=== PATIENT | male | born 1960 | race African-American/Black ===

== ENCOUNTER 2020-01-08 23:44 | Inpatient (IN) | payer OTHER ==
[~2020-01-08] VITALS: Ht 185.4 cm; Wt 96.6 kg
[2020-01-09 00:15] LABS: BASO # 0.1 x10^3/uL (0.0-0.2); BASO % 1 % (0-3); EOS # 0.1 x10^3/uL (0.0-0.7); EOS % 1 % (0-3); HEMATOCRIT 44.9 % (39.0-53.0); HEMOGLOBIN 15.1 g/dL (13.0-17.5); LYMPH # 2.8 x10^3/uL (1.0-4.8); LYMPH % 26 % (24-48); MEAN CORPUSCULAR HEMOGLOBIN 28 pg (25-35); MEAN CORPUSCULAR HGB CONC 34 g/dL (31-37); MEAN CORPUSCULAR VOLUME 82 fL (79-100); MONO % 9 % (0-9); NEUT # 6.9 x10^3/uL (1.8-7.7); NEUT % 64 % (31-73); PLATELET COUNT 269 x10^3/uL (140-400); RED BLOOD COUNT 5.45 x10^6/uL (4.30-5.70); RED CELL DISTRIBUTION WIDTH 13.6 % (11.5-14.5); WHITE BLOOD COUNT 10.8 x10^3/uL (4.0-11.0)
--- NOTE | 2020-01-09 00:43 | RAD ---
AP chest. HISTORY: Pain AP view was taken of the chest. Patient's taken a poor inspiration. Lungs are clear. Heart is normal in size. There is no pleural effusion. IMPRESSION: 1. No acute infiltrates. Electronically signed by: Magan Hardwick MD (01/09/2020 12:40 AM) [id number]
--- NOTE | 2020-01-09 00:59 | PHYS DOC ---
Past Medical History Past Medical History: CHF, Diabetes-Type II, High Cholesterol, Hypertension Past Surgical History: No Surgical History Additional Past Surgical Histo: PATIENT COULD NOT NAME PRIOR SURGERIES Smoking Status: Former Smoker Alcohol Use: None General Adult EDM: Chief Complaint: CHEST PAIN HPI: HPI: Patient is a 59 year old male presenting to the ED from [facility] with a chief complaint of chest pain. Patient states that the pain started around 10 PM tonight. Patient does state that he has a history of CHF. Patient was given aspirin and nitro by EMS. Initially pain was 8 out of 10 but currently pain is 3 out of 10. Patient denies fever, chills, nausea, vomiting, chest pain, shortness of breath. Review of Systems: Review of Systems: Constitutional: Denies fever or chills. [] Eyes: Denies change in visual acuity. [] HENT: Denies nasal congestion or sore throat. [] Respiratory: Denies cough or shortness of breath. [] Cardiovascular: Complains of chest pain [] GI: Denies abdominal pain, nausea, vomiting, bloody stools or diarrhea. [] Musculoskeletal: Denies back pain or joint pain. [] Neurologic: Denies headache, focal weakness or sensory changes. [] Heart Score: Risk Factors: Risk Factors: DM, Current or recent (<one month) smoker, HTN, HLP, family history of CAD, obesity. Risk Scores: Score 0 - 3: 2.5% MACE over next 6 weeks - Discharge Home Score 4 - 6: 20.3% MACE over next 6 weeks - Admit for Clinical Observation Score 7 - 10: 72.7% MACE over next 6 weeks - Early Invasive Strategies Allergies: Allergies: Allergies Coded Allergies Type Severity Reaction Last Updated Verified azithromycin Allergy Intermediate PANIC ATTACK 01/09/20 Yes Physical Exam: PE: Constitutional: Well developed, well nourished, no acute distress, non-toxic appearance. [] HENT: Normocephalic, atraumatic Eyes: EOMI Neck: Normal range of motion, Supple Cardiovascular: Tachycardia with regular rhythm Lungs & Thorax: Bilateral breath sounds clear to auscultation [] Abdomen: Bowel sounds normal, soft, no tenderness Extremities: No tenderness, ROM intact Neurologic: Alert and oriented X 3 Current Patient Data: Labs: Laboratory Tests Test 01/09/20 00:01 White Blood Count 10.8 x10^3/uL (4.0-11.0) Red Blood Count 5.45 x10^6/uL (4.30-5.70) Hemoglobin 15.1 g/dL (13.0-17.5) Hematocrit 44.9 % (39.0-53.0) Mean Corpuscular Volume 82 fL (79-100) Mean Corpuscular Hemoglobin 28 pg (25-35) Mean Corpuscular Hemoglobin Concent 34 g/dL (31-37) Red Cell Distribution Width 13.6 % (11.5-14.5) Platelet Count 269 x10^3/uL (140-400) Neutrophils (%) (Auto) 64 % (31-73) Lymphocytes (%) (Auto) 26 % (24-48) Monocytes (%) (Auto) 9 % (0-9) Eosinophils (%) (Auto) 1 % (0-3) Basophils (%) (Auto) 1 % (0-3) Neutrophils # (Auto) 6.9 x10^3/uL (1.8-7.7) Lymphocytes # (Auto) 2.8 x10^3/uL (1.0-4.8) Monocytes # (Auto) 1.0 x10^3/uL (0.0-1.1) Eosinophils # (Auto) 0.1 x10^3/uL (0.0-0.7) Basophils # (Auto) 0.1 x10^3/uL (0.0-0.2) Laboratory Tests 01/09/20 00:01 Vital Signs: Vital Signs Date Time Temp Pulse Resp B/P (MAP) Pulse Ox O2 Delivery O2 Flow Rate FiO2 01/08/20 23:44 99.3 126 20 175/100 (125) 97 Room Air 99.3 EKG: EKG: EKG interpretation: 23: 54 on 01/08/2020 HR: 122 sinus tachycardia Regular intervals Normal axis Nonspecific ST changes [] Radiology/Procedures: Radiology/Procedures: [] Impression: CXR IMPRESSION: 1. No acute infiltrates. Course & Med Decision Making: Course & Med Decision Making Pertinent Labs and Imaging studies reviewed. (See chart for details) EKG shows sinus tachycardia Chest x-ray does not show any acute disease. Troponin is elevated at 0.118 Patient is started on heparin in the ER. Patient will be admitted for further evaluation and treatment. Discussed results and plan of care with patient. Patient admitted to hospitalist service with cardiology consultation. Repeat troponin ordered. Critical care: 35 minutes Time is inclusive of interpretation of labs, interpretation of imaging, consultation with other physicians Patient needed continuous cardiovascular, respiratory monitoring secondary to NSTEMI Dragon Disclaimer: Apoorva Disclaimer: This electronic medical record was generated, in whole or in part, using a voice recognition dictation system. Departure Departure Impression: Primary Impression: NSTEMI (non-ST elevated myocardial infarction) Disposition: ADMITTED INPATIENT Admitting Physician: ELMER Condition: GUARDED Referrals: UNKNOWN PCP NAME (PCP) Justicifation of Admission Dx: Justifications for Admission: Justification of Admission Dx: Yes [place]: Acute NSTEMI DEREK AL DO Jan 09, 2020 00:59
[2020-01-09] MEDS ORDERED: IV NORMAL SALINE 1000ML BAG 1,000 ML IV ONE (01:15)
[2020-01-09 01:30] LABS: CALCIUM 9.3 mg/dL (8.5-10.1); CREATININE 1.2 mg/dL (0.7-1.3); GFR 75.5; POTASSIUM 4.6 mmol/L (3.5-5.1)
[2020-01-09 01:34] LABS: ALBUMIN 3.6 g/dL (3.4-5.0); ALBUMIN/GLOBULIN RATIO 0.9 (1.0-1.7); TOTAL BILIRUBIN 0.2 mg/dL (0.2-1.0); TOTAL PROTEIN 7.6 g/dL (6.4-8.2)
[2020-01-09] MEDS ORDERED: ANTI-COAG MONITOR BY PHARMACY. MC PRN (02:30)
[2020-01-09] MEDS ORDERED: HEPARIN for IV BOLUS 10,000 UNIT/10 ML VIAL. IV ONE (02:30)
[2020-01-09] MEDS ORDERED: HEPARIN 25,000UTS/250ML PREMIX 250 ML IV ONE (02:30)
[2020-01-09] MEDS ORDERED: HEPARIN for IV BOLUS 10,000 UNIT/10 ML VIAL. IV PRN (04:00)
[2020-01-09 04:57] LABS: PLT ESTIMATE ADEQUATE (ADEQUATE)
[2020-01-09] MEDS ORDERED: ISOS30TA4 PO (05:05)
[2020-01-09] MEDS ORDERED: LOSA100T14 PO (05:05)
[2020-01-09] MEDS ORDERED: PREG150C PO (05:05)
[2020-01-09] MEDS ORDERED: DULO60CA6 PO (05:05)
[2020-01-09] MEDS ORDERED: ASPI-630 PO (05:05)
[2020-01-09] MEDS ORDERED: INSU100V5 SQ (05:05)
[2020-01-09] MEDS ORDERED: CLON0.1T PO (05:05)
[2020-01-09] MEDS ORDERED: NPH,100V SQ ×2 (05:05)
[2020-01-09] MEDS ORDERED: MAGN100T6 PO (05:05)
[2020-01-09] MEDS ORDERED: CLON0.2T PO (05:05)
[2020-01-09] MEDS ORDERED: IBUP-1007 PO (05:05)
[2020-01-09] MEDS ORDERED: ATOR40TA59 PO (05:05)
[2020-01-09 07:00] VITALS: BP 140/84
--- NOTE | 2020-01-09 09:42 | PDOC2 ---
CONSULT Date of Consult Date of Consult DATE: 01/09/20 TIME: 09:41 Reason for Consult Reason for Consult: Chest pain Referring Physician Referring Physician: Dr. King Identification/Chief Complaint Chief Complaint Chest pain Source Source: Chart review, Patient History of Present Illness Reason for Visit: 59-year-old male inmate of [facility], presented with retrosternal chest pain that he described as pressure-like sensation that started 10 PM last night. Pain was relieved after he was given aspirin and sublingual NTG by EMS. He denied any shortness of breath, palpitations or syncope. Past Medical History Past Medical History Hypertension Hyperlipidemia Diabetes mellitus type 2 Congestive heart failure Family History Family History Hypertension and coronary artery disease Social History Social History Patient is a former smoker and denied any alcohol or drug use Current Problem List Problem List Problems Medical Problems: (1) NSTEMI (non-ST elevated myocardial infarction) Status: Acute Current Medications Current Medications Current Medications Sodium Chloride 1,000 ml @ 1,000 mls/hr 1X ONCE IV Last administered on 01/09/20at 00:55; Start 01/09/20 at 01:15; Stop 01/09/20 at 02:14; Status DC Heparin Sodium (Porcine) (Heparin Sodium) 4,000 unit 1X ONCE IV Last administered on 01/09/20at 02:54; Start 01/09/20 at 02:30; Stop 01/09/20 at 02:31; Status DC Heparin Sodium/ Dextrose 250 ml @ 0 mls/hr 1X ONCE IV Last administered on 01/09/20at 02:53; Start 01/09/20 at 02:30; Stop 01/09/20 at 02:31; Status DC Info (Anti-Coagulation Monitoring By Pharmacy) 1 each PRN DAILY PRN [facility] SEE COMMENTS Last administered on 01/09/20at 04:20; Start 01/09/20 at 02:30 Heparin Sodium/ Dextrose 250 ml @ 0 mls/hr CONT PRN IV PER PROTOCOL; Start 01/09/20 at 04:00 Heparin Sodium (Porcine) (Heparin Sodium) 2,500 unit PRN Q6HRS PRN IV FOR UFH LEVEL LESS THAN 0.2; Start 01/09/20 at 04:00 Active Scripts Active Reported Clonidine Hcl 0.1 Mg Tablet 0.1 Mg PO DAILY Humulin N (Nph, Human Insulin Isophane) 100 Unit/1 Ml Vial 40 Unit SQ DAILY08 Humulin N (Nph, Human Insulin Isophane) 100 Unit/1 Ml Vial 24 Unit SQ QPM Lyrica (Pregabalin) 150 Mg Capsule 150 Mg PO BID 30 Days Aspirin 81 Mg Tab.chew 81 Mg PO DAILY Cymbalta (Duloxetine Hcl) 60 Mg Capsule.dr 60 Mg PO DAILY Losartan Potassium 100 Mg Tablet 100 Mg PO DAILY Magnesium Citrate 100 Mg Tablet 400 Mg PO HS Clonidine Hcl 0.2 Mg Tablet 0.2 Mg PO HS Isosorbide Mononitrate Er (Isosorbide Mononitrate) 30 Mg Tab.er.24h 30 Mg PO DAILY Atorvastatin Calcium 40 Mg Tablet 40 Mg PO DAILY Humulin R (Insulin Regular, Human) 100 Unit/1 Ml Vial 1 Unit SQ ACHS sliding scale Ibuprofen 600 Mg Tablet 600 Mg PO BID Allergies Allergies: Coded Allergies: azithromycin (Verified Allergy, Intermediate, PANIC ATTACK, 01/09/20) PATIENT SAYS HE GOT HOT AND HAD A PANIC LIKE ATTACK ROS PSYCHOLOGICAL ROS: No: Hallucinations Eyes: No Loss of vision HEENT: No: Epistaxis Respiratory: No: Hemoptysis, Shortness of breath Cardiovascular: yes Chest Pain Gastrointestinal: No Vomiting, No Diarrhea Genitourinary: No Hematuria Neurological: No Seizures Physical Exam General: Alert, Oriented X3 HEENT: Atraumatic Lungs: Clear to auscultation Heart: Regular rate Abdomen: Soft Extremities: No edema Psych/Mental Status: Mood NL Vitals VITALS Vital Signs Date Time Temp Pulse Resp B/P (MAP) Pulse Ox O2 Delivery O2 Flow Rate FiO2 01/09/20 07:45 Room Air 01/09/20 07:00 97.7 94 18 140/84 (102) 99 97.7 Labs Labs Laboratory Tests Test 01/09/20 00:01 01/09/20 00:37 01/09/20 02:46 01/09/20 05:17 White Blood Count 10.8 x10^3/uL (4.0-11.0) Red Blood Count 5.45 x10^6/uL (4.30-5.70) Hemoglobin 15.1 g/dL (13.0-17.5) Hematocrit 44.9 % (39.0-53.0) Mean Corpuscular Volume 82 fL (79-100) Mean Corpuscular Hemoglobin 28 pg (25-35) Mean Corpuscular Hemoglobin Concent 34 g/dL (31-37) Red Cell Distribution Width 13.6 % (11.5-14.5) Platelet Count 269 x10^3/uL (140-400) Neutrophils (%) (Auto) 64 % (31-73) Lymphocytes (%) (Auto) 26 % (24-48) Monocytes (%) (Auto) 9 % (0-9) Eosinophils (%) (Auto) 1 % (0-3) Basophils (%) (Auto) 1 % (0-3) Neutrophils # (Auto) 6.9 x10^3/uL (1.8-7.7) Lymphocytes # (Auto) 2.8 x10^3/uL (1.0-4.8) Monocytes # (Auto) 1.0 x10^3/uL (0.0-1.1) Eosinophils # (Auto) 0.1 x10^3/uL (0.0-0.7) Basophils # (Auto) 0.1 x10^3/uL (0.0-0.2) Platelet Estimate Adequate (ADEQUATE) Giant Platelets Occ Sodium Level 136 mmol/L (136-145) Potassium Level 4.6 mmol/L (3.5-5.1) Chloride Level 99 mmol/L (98-107) Carbon Dioxide Level 29 mmol/L (21-32) Anion Gap 8 (6-14) Blood Urea Nitrogen 13 mg/dL (8-26) Creatinine 1.2 mg/dL (0.7-1.3) Estimated GFR (Cockcroft-Gault) 75.5 BUN/Creatinine Ratio 11 (6-20) Glucose Level 257 mg/dL (70-99) Calcium Level 9.3 mg/dL (8.5-10.1) Total Bilirubin 0.2 mg/dL (0.2-1.0) Aspartate Amino Transf (AST/SGOT) 17 U/L (15-37) Alanine Aminotransferase (ALT/SGPT) 27 U/L (16-63) Alkaline Phosphatase 89 U/L (46-116) Troponin I Quantitative 0.118 ng/mL (0.000-0.055) 0.157 ng/mL (0.000-0.055) 0.162 ng/mL (0.000-0.055) Total Protein 7.6 g/dL (6.4-8.2) Albumin 3.6 g/dL (3.4-5.0) Albumin/Globulin Ratio 0.9 (1.0-1.7) Lipase 67 U/L (73-393) Laboratory Tests Test 01/09/20 00:01 01/09/20 00:37 01/09/20 02:46 01/09/20 05:17 White Blood Count 10.8 x10^3/uL (4.0-11.0) Red Blood Count 5.45 x10^6/uL (4.30-5.70) Hemoglobin 15.1 g/dL (13.0-17.5) Hematocrit 44.9 % (39.0-53.0) Mean Corpuscular Volume 82 fL (79-100) Mean Corpuscular Hemoglobin 28 pg (25-35) Mean Corpuscular Hemoglobin Concent 34 g/dL (31-37) Red Cell Distribution Width 13.6 % (11.5-14.5) Platelet Count 269 x10^3/uL (140-400) Neutrophils (%) (Auto) 64 % (31-73) Lymphocytes (%) (Auto) 26 % (24-48) Monocytes (%) (Auto) 9 % (0-9) Eosinophils (%) (Auto) 1 % (0-3) Basophils (%) (Auto) 1 % (0-3) Neutrophils # (Auto) 6.9 x10^3/uL (1.8-7.7) Lymphocytes # (Auto) 2.8 x10^3/uL (1.0-4.8) Monocytes # (Auto) 1.0 x10^3/uL (0.0-1.1) Eosinophils # (Auto) 0.1 x10^3/uL (0.0-0.7) Basophils # (Auto) 0.1 x10^3/uL (0.0-0.2) Platelet Estimate Adequate (ADEQUATE) Giant Platelets Occ Sodium Level 136 mmol/L (136-145) Potassium Level 4.6 mmol/L (3.5-5.1) Chloride Level 99 mmol/L (98-107) Carbon Dioxide Level 29 mmol/L (21-32) Anion Gap 8 (6-14) Blood Urea Nitrogen 13 mg/dL (8-26) Creatinine 1.2 mg/dL (0.7-1.3) Estimated GFR (Cockcroft-Gault) 75.5 BUN/Creatinine Ratio 11 (6-20) Glucose Level 257 mg/dL (70-99) Calcium Level 9.3 mg/dL (8.5-10.1) Total Bilirubin 0.2 mg/dL (0.2-1.0) Aspartate Amino Transf (AST/SGOT) 17 U/L (15-37) Alanine Aminotransferase (ALT/SGPT) 27 U/L (16-63) Alkaline Phosphatase 89 U/L (46-116) Troponin I Quantitative 0.118 ng/mL (0.000-0.055) 0.157 ng/mL (0.000-0.055) 0.162 ng/mL (0.000-0.055) Total Protein 7.6 g/dL (6.4-8.2) Albumin 3.6 g/dL (3.4-5.0) Albumin/Globulin Ratio 0.9 (1.0-1.7) Lipase 67 U/L (73-393) Assessment/Plan Assessment/Plan 1. Chest pain with typical features and elevated troponin level, peaking at 0.16 consistent with non-STEMI. Patient is presently chest pain-free. Start heparin infusion per protocol and beta-blockers. Continue aspirin. COVID test is pending. We will plan for cardiac catheterization once results are back, possibly Saturday. 2. Hypertension: Better controlled since admission. 3. Hyperlipidemia: Continue statin therapy 4. DM-2: Treat per IM Thank you for your consultation SAIRA BAILEY MD Jan 09, 2020 09:42
[2020-01-09 11:17] VITALS: BP 140/76
--- NOTE | 2020-01-09 11:44 | HP ---
ADMIT DATE: CHIEF COMPLAINT: Chest pain. HISTORY OF PRESENT ILLNESS: The patient is a pleasant middle-aged male who resides at [facility]. He presented with chest pain that has been occurring for several hours, worse with moving, better with sitting still, some nitro helped. It appears his troponin is also bumped up. I discussed the case with ER physician. We are going to admit the patient and ruled out for COVID-19, and then he will be going to the sanitation laborer later today or tomorrow. PAST MEDICAL HISTORY: Diabetes, CHF, hypertension and hyperlipidemia. ALLERGIES: AZITHROMYCIN. FAMILY HISTORY: Coronary artery disease. SOCIAL HISTORY: He does not drink, smoke or take drugs. He resides at [facility]. MEDICATIONS: Reviewed, please refer to the MRAD. REVIEW OF SYSTEMS: GENERAL: No history of weight change, weakness or fevers. SKIN: No bruising, hair changes or rashes. EYES: No blurred, double or loss of vision. NOSE AND THROAT: No history of nosebleeds, hoarseness or sore throat. HEART: No history of palpitations, chest pain or shortness of breath on exertion. LUNGS: Denies cough, hemoptysis, wheezing or shortness of breath. GASTROINTESTINAL: Denies changes in appetite, nausea, vomiting, diarrhea or constipation. GENITOURINARY: No history of frequency, urgency, hesitancy or nocturia. NEUROLOGIC: Denies history of numbness, tingling, tremor or weakness. PSYCHIATRIC: No history of panic, anxiety or depression. ENDOCRINE: No history of heat or cold intolerance, polyuria or polydipsia. EXTREMITIES: Denies muscle weakness, joint pain, pain on walking or stiffness. PHYSICAL EXAMINATION: VITALS: Within normal limits and are stable. GENERAL: No apparent distress. Alert and oriented. HEENT: Normal cephalic atraumatic, external auditory canals are patent EYES: Extraocular muscles are intact, pupils are equally round and reactive to light and accommodation MUSCULOSKELETAL: Well developed, well nourished, good range of motion ENDOCRINE: No thyromegaly was palpated LYMPHATICS: No cervical chain or axillary nodes were noted HEMATOPOIETIC: No bruising NECK: Supple, no JVD, no thyromegaly was noted. LUNGS: Clear to auscultation in all lung panda without rhonchi or wheezing. HEART: RRR, S1, S2 present. Peripheral pulses intact, no obvious murmurs were noted. ABDOMEN: Soft, nontender. Positive bowel sounds no organomegaly, normal bowel sounds. EXTREMITIES: Without any cyanosis, clubbing, or edema. Pedal pulses intact, Homans sign is negative. NEUROLOGIC: Normal speech, normal tone. A & O x3, moves all extremities, no obvious focal deficits. PSYCHIATRIC: Normal affect, normal mood. Stable. SKIN: No ulcerations or rashes, good skin turgor, no jaundice. VASCULAR: Good capillary refill, neurovascular bundle appears to be intact. LABORATORY DATA: Troponin is 0.16. ASSESSMENT AND PLAN: Acute myocardial infarction. The patient is being admitted. We will consult Cardiology. He is going to the sanitation laborer tomorrow. For now, cardiac monitoring, serial enzymes, serial EKGs, rule out COVID-19. Home meds, DVT prophylaxis. Full code. PROGNOSIS: Guarded. DEREJE DUMAS DO DR: TRACEE/suman JOB#: [id number] / [id number]
[2020-01-09] MEDS: INSULIN GLARGINE SYRINGE. SQ SCH ×2 (12:30→21:18)
[2020-01-09] MEDS ORDERED: ASPIRIN CHEWABLE 81 MG TABLET. PO SCH (13:00)
[2020-01-09] MEDS: IBUPROFEN 200 MG TABLET. PO SCH ×2 (13:00→20:58)
[2020-01-09] MEDS: DULoxetine HCL 30 MG CAPSULE.DR PO SCH (13:49)
[2020-01-09] MEDS: ASPIRIN 325 MG TABLET PO SCH (13:49)
[2020-01-09] MEDS: ATORVASTATIN CALCIUM 40 MG TABLET. PO SCH (13:49)
[2020-01-09] MEDS: PREGABALIN 75 MG CAPSULE PO SCH ×2 (13:50→20:58)
[2020-01-09] MEDS: METOPROLOL TART IMMED RELEASE 25 MG TABLET. PO SCH ×2 (13:51→20:58)
[2020-01-09] MEDS: LOSARTAN POTASSIUM 50 MG TABLET. PO SCH (13:51)
[2020-01-09] MEDS: cloNIDine HCL 0.1 MG TABLET PO SCH (13:52)
[2020-01-09] MEDS: ISOSORBIDE MONONITRATE ER 30 MG TAB.ER.24H PO SCH (13:52)
[2020-01-09 14:44] VITALS: BP 164/91
[2020-01-09] MEDS ORDERED: DEXTROSE 50% 25 GM / 50ML DISP.SYRIN. IV PRN (16:45)
[2020-01-09] MEDS: INSULIN LISPRO 300 UNITS/3 ML VIAL. SQ SCH (17:11)
[2020-01-09 19:43] VITALS: BP 107/66
[2020-01-09] MEDS: MAGNESIUM OXIDE 400 MG TABLET PO SCH (20:57)
[2020-01-09] MEDS: cloNIDine HCL 0.2 MG TABLET PO SCH (20:59)
[2020-01-09 22:41] VITALS: BP 114/70
[2020-01-10] MEDS: HEPARIN 25,000UTS/250ML PREMIX 250 ML IV PRN ×2 (01:09→21:20)
[2020-01-10 03:29] VITALS: BP 101/65
[2020-01-10 07:00] VITALS: BP 121/78
[2020-01-10 07:35] LABS: BASO % 0 % (0-3); EOS # 0.2 x10^3/uL (0.0-0.7); EOS % 3 % (0-3); HEMATOCRIT 44.1 % (39.0-53.0); HEMOGLOBIN 14.2 g/dL (13.0-17.5); LYMPH # 3.3 x10^3/uL (1.0-4.8); LYMPH % 44 % (24-48); MEAN CORPUSCULAR HEMOGLOBIN 27 pg (25-35); MEAN CORPUSCULAR HGB CONC 32 g/dL (31-37); MEAN CORPUSCULAR VOLUME 84 fL (79-100); MONO # 0.6 x10^3/uL (0.0-1.1); MONO % 8 % (0-9); NEUT # 3.3 x10^3/uL (1.8-7.7); NEUT % 45 % (31-73); PLATELET COUNT 181 x10^3/uL (140-400); RED BLOOD COUNT 5.25 x10^6/uL (4.30-5.70); RED CELL DISTRIBUTION WIDTH 13.9 % (11.5-14.5); WHITE BLOOD COUNT 7.5 x10^3/uL (4.0-11.0)
[2020-01-10 07:53] LABS: ALBUMIN/GLOBULIN RATIO 0.7 (1.0-1.7); CALCIUM 8.4 mg/dL (8.5-10.1); CREATININE 1.1 mg/dL (0.7-1.3); GFR 83.5; POTASSIUM 4.5 mmol/L (3.5-5.1); TOTAL BILIRUBIN 0.2 mg/dL (0.2-1.0); TOTAL PROTEIN 7.2 g/dL (6.4-8.2)
[2020-01-10] MEDS: LOSARTAN POTASSIUM 50 MG TABLET. PO SCH (08:38)
[2020-01-10] MEDS: IBUPROFEN 200 MG TABLET. PO SCH ×2 (08:39→21:09)
[2020-01-10] MEDS: ASPIRIN 325 MG TABLET PO SCH (08:39)
[2020-01-10] MEDS: cloNIDine HCL 0.1 MG TABLET PO SCH (08:39)
[2020-01-10] MEDS: ISOSORBIDE MONONITRATE ER 30 MG TAB.ER.24H PO SCH (08:39)
[2020-01-10] MEDS: PREGABALIN 75 MG CAPSULE PO SCH ×2 (08:40→21:08)
[2020-01-10] MEDS: ATORVASTATIN CALCIUM 40 MG TABLET. PO SCH (08:40)
[2020-01-10] MEDS: METOPROLOL TART IMMED RELEASE 25 MG TABLET. PO SCH ×2 (08:40→21:08)
[2020-01-10] MEDS: DULoxetine HCL 30 MG CAPSULE.DR PO SCH (08:47)
[2020-01-10] MEDS: INSULIN GLARGINE SYRINGE. SQ SCH ×2 (08:48→21:15)
[2020-01-10] MEDS: INSULIN LISPRO 300 UNITS/3 ML VIAL. SQ SCH ×5 (08:48→17:00)
[2020-01-10 11:00] VITALS: BP 152/87
--- NOTE | 2020-01-10 12:41 | PDOC ---
PROGRESS NOTES Subjective Subjective Denied any chest pain or shortness of breath Objective Objective Vital Signs Date Time Temp Pulse Resp B/P (MAP) Pulse Ox O2 Delivery O2 Flow Rate FiO2 01/10/20 11:00 98.3 71 18 152/87 (108) 97 Room Air 98.3 Intake and Output 01/10/20 07:00 Intake Total 1100 ml Output Total 400 ml Balance 700 ml Intake Oral 1100 ml Output Urine Total 400 ml # Voids 1 Physical Exam Abdomen: Soft Heart: Regular rate Extremities: No edema General: Alert, Oriented X3 HEENT: Atraumatic Lungs: Clear to auscultation Psych/Mental Status: Mood NL Assessment Assessment 1. Chest pain with typical features and elevated troponin level, peaking at 0.16 consistent with non-STEMI. Patient is presently chest pain-free. Continue heparin infusion per protocol and beta-blockers. COVID test negative. Plan for cardiac catheterization tomorrow. 2. Hypertension: Better controlled since admission. 3. Hyperlipidemia: Continue statin therapy 4. DM-2: Treat per IM Plan Plan of Care Problems Medical Problems: (1) NSTEMI (non-ST elevated myocardial infarction) Status: Acute Comment Review of Relevant I have reviewed the following items donna (where applicable) has been applied. Labs Laboratory Tests Test 01/09/20 13:58 01/09/20 15:55 01/09/20 16:30 01/09/20 20:41 Glucose (Fingerstick) 236 mg/dL (70-99) 241 mg/dL (70-99) 319 mg/dL (70-99) Heparin Anti-Xa Act, Unfractionated 0.41 IU/mL (0.30-0.70) Test 01/10/20 07:00 01/10/20 07:51 01/10/20 12:14 White Blood Count 7.5 x10^3/uL (4.0-11.0) Red Blood Count 5.25 x10^6/uL (4.30-5.70) Hemoglobin 14.2 g/dL (13.0-17.5) Hematocrit 44.1 % (39.0-53.0) Mean Corpuscular Volume 84 fL (79-100) Mean Corpuscular Hemoglobin 27 pg (25-35) Mean Corpuscular Hemoglobin Concent 32 g/dL (31-37) Red Cell Distribution Width 13.9 % (11.5-14.5) Platelet Count 181 x10^3/uL (140-400) Neutrophils (%) (Auto) 45 % (31-73) Lymphocytes (%) (Auto) 44 % (24-48) Monocytes (%) (Auto) 8 % (0-9) Eosinophils (%) (Auto) 3 % (0-3) Basophils (%) (Auto) 0 % (0-3) Neutrophils # (Auto) 3.3 x10^3/uL (1.8-7.7) Lymphocytes # (Auto) 3.3 x10^3/uL (1.0-4.8) Monocytes # (Auto) 0.6 x10^3/uL (0.0-1.1) Eosinophils # (Auto) 0.2 x10^3/uL (0.0-0.7) Basophils # (Auto) 0.0 x10^3/uL (0.0-0.2) Heparin Anti-Xa Act, Unfractionated 0.49 IU/mL (0.30-0.70) Sodium Level 135 mmol/L (136-145) Potassium Level 4.5 mmol/L (3.5-5.1) Chloride Level 100 mmol/L (98-107) Carbon Dioxide Level 30 mmol/L (21-32) Anion Gap 5 (6-14) Blood Urea Nitrogen 17 mg/dL (8-26) Creatinine 1.1 mg/dL (0.7-1.3) Estimated GFR (Cockcroft-Gault) 83.5 BUN/Creatinine Ratio 15 (6-20) Glucose Level 306 mg/dL (70-99) Calcium Level 8.4 mg/dL (8.5-10.1) Total Bilirubin 0.2 mg/dL (0.2-1.0) Aspartate Amino Transf (AST/SGOT) 15 U/L (15-37) Alanine Aminotransferase (ALT/SGPT) 22 U/L (16-63) Alkaline Phosphatase 74 U/L (46-116) Total Protein 7.2 g/dL (6.4-8.2) Albumin 3.0 g/dL (3.4-5.0) Albumin/Globulin Ratio 0.7 (1.0-1.7) Glucose (Fingerstick) 274 mg/dL (70-99) 232 mg/dL (70-99) Medications Current Medications Aspirin (Aspirin Chewable) 81 mg DAILY PO ; Start 01/09/20 at 13:00; Stop 01/09/20 at 11:59; Status DC Atorvastatin Calcium (Lipitor) 40 mg DAILY PO Last administered on 01/10/20 08:40; Start 01/09/20 at 13:00 Clonidine HCl (Catapres) 0.1 mg DAILY PO Last administered on 01/10/20 08:39; Start 01/09/20 at 13:00 Clonidine HCl (Catapres) 0.2 mg HS PO Last administered on 01/09/20 20:59; Start 01/09/20 at 21:00 Dextrose (Dextrose 50%-Water Syringe) 12.5 gm PRN Q15MIN PRN IV SEE COMMENTS; Start 01/09/20 at 16:45 Duloxetine HCl (Cymbalta) 60 mg DAILY PO Last administered on 01/10/20 08:47; Start 01/09/20 at 13:00 Ibuprofen (Motrin) 400 mg BID PO Last administered on 01/10/20 08:39; Start 01/09/20 at 13:00 Insulin Glargine (Lantus Syringe) 24 unit QHS SQ Last administered on 01/09/20 21:18; Start 01/09/20 at 21:00 Insulin Human Lispro (HumaLOG) 0-9 UNITS TIDWMEALS SQ Last administered on 01/10/20 08:48; Start 01/09/20 at 17:00 Insulin Human Lispro (HumaLOG) 10 units TIDWMEALS SQ ; Start 01/10/20 at 12:00 Isosorbide Mononitrate (Imdur) 30 mg DAILY PO Last administered on 01/10/20 08:39; Start 01/09/20 at 13:00 Losartan Potassium (Cozaar) 100 mg DAILY PO Last administered on 01/10/20 08:38; Start 01/09/20 at 13:00 Magnesium Oxide (Magnesium Oxide) 400 mg QHS PO Last administered on 01/09/20 20:57; Start 01/09/20 at 21:00 Pregabalin (Lyrica) 150 mg BID PO Last administered on 01/10/20 08:40; Start 7/4/20 at 13:00 Vitals/I & O Vital Sign - Last 24 Hours 01/09/20 01/09/20 01/09/20 01/09/20 13:51 13:51 13:52 13:52 Pulse 94 94 94 B/P (MAP) 140/76 140/76 140/76 140/76 01/09/20 01/09/20 01/09/20 01/09/20 14:44 15:11 19:43 20:27 Temp 99.4 98.7 98.7 99.4 98.7 98.7 Pulse 96 91 Resp 20 16 B/P (MAP) 164/91 (115) 107/66 (80) Pulse Ox 99 94 O2 Delivery Room Air Room Air Room Air 01/09/20 01/09/20 01/09/20 01/10/20 20:58 20:59 22:41 03:29 Temp 98.5 97.6 98.5 97.6 Pulse 91 91 86 71 Resp 16 16 B/P (MAP) 107/66 107/66 114/70 (85) 101/65 (77) Pulse Ox 92 96 O2 Delivery Room Air Room Air 01/10/20 01/10/20 01/10/20 01/10/20 07:00 08:17 08:38 08:39 Temp 98.3 98.3 Pulse 80 88 88 Resp 18 B/P (MAP) 121/78 (92) 121/78 121/78 Pulse Ox 98 O2 Delivery Room Air Room Air 01/10/20 01/10/20 01/10/20 08:39 08:40 11:00 Temp 98.3 98.3 Pulse 88 71 Resp 18 B/P (MAP) 121/78 121/78 152/87 (108) Pulse Ox 97 O2 Delivery Room Air Intake and Output 01/09/20 01/09/20 01/10/20 15:00 23:00 07:00 Intake Total 0 ml 600 ml 500 ml Output Total 400 ml Balance -400 ml 600 ml 500 ml SAIRA BAILEY MD Jan 10, 2020 12:41
[2020-01-10 15:00] VITALS: BP 96/56
--- NOTE | 2020-01-10 16:39 | PDOC ---
PROGRESS NOTES Chief Complaint Chief Complaint Acute myocardial infarction. NSTEMI, htn, lipids Dm2, decent control [facility] History of Present Illness History of Present Illness CV consulted, Cardiac cath soon dispo on results pedning Vitals Vitals Vital Signs Date Time Temp Pulse Resp B/P (MAP) Pulse Ox O2 Delivery O2 Flow Rate FiO2 01/10/20 15:00 98.1 74 18 96/56 (69) 96 Room Air 98.1 Physical Exam General: Alert, Oriented X3 Heart: Regular rate Abdomen: Soft Extremities: No edema Labs LABS Laboratory Tests Test 01/09/20 20:41 01/10/20 07:00 01/10/20 07:51 01/10/20 12:14 Glucose (Fingerstick) 319 mg/dL (70-99) 274 mg/dL (70-99) 232 mg/dL (70-99) White Blood Count 7.5 x10^3/uL (4.0-11.0) Red Blood Count 5.25 x10^6/uL (4.30-5.70) Hemoglobin 14.2 g/dL (13.0-17.5) Hematocrit 44.1 % (39.0-53.0) Mean Corpuscular Volume 84 fL (79-100) Mean Corpuscular Hemoglobin 27 pg (25-35) Mean Corpuscular Hemoglobin Concent 32 g/dL (31-37) Red Cell Distribution Width 13.9 % (11.5-14.5) Platelet Count 181 x10^3/uL (140-400) Neutrophils (%) (Auto) 45 % (31-73) Lymphocytes (%) (Auto) 44 % (24-48) Monocytes (%) (Auto) 8 % (0-9) Eosinophils (%) (Auto) 3 % (0-3) Basophils (%) (Auto) 0 % (0-3) Neutrophils # (Auto) 3.3 x10^3/uL (1.8-7.7) Lymphocytes # (Auto) 3.3 x10^3/uL (1.0-4.8) Monocytes # (Auto) 0.6 x10^3/uL (0.0-1.1) Eosinophils # (Auto) 0.2 x10^3/uL (0.0-0.7) Basophils # (Auto) 0.0 x10^3/uL (0.0-0.2) Heparin Anti-Xa Act, Unfractionated 0.49 IU/mL (0.30-0.70) Sodium Level 135 mmol/L (136-145) Potassium Level 4.5 mmol/L (3.5-5.1) Chloride Level 100 mmol/L (98-107) Carbon Dioxide Level 30 mmol/L (21-32) Anion Gap 5 (6-14) Blood Urea Nitrogen 17 mg/dL (8-26) Creatinine 1.1 mg/dL (0.7-1.3) Estimated GFR (Cockcroft-Gault) 83.5 BUN/Creatinine Ratio 15 (6-20) Glucose Level 306 mg/dL (70-99) Calcium Level 8.4 mg/dL (8.5-10.1) Total Bilirubin 0.2 mg/dL (0.2-1.0) Aspartate Amino Transf (AST/SGOT) 15 U/L (15-37) Alanine Aminotransferase (ALT/SGPT) 22 U/L (16-63) Alkaline Phosphatase 74 U/L (46-116) Total Protein 7.2 g/dL (6.4-8.2) Albumin 3.0 g/dL (3.4-5.0) Albumin/Globulin Ratio 0.7 (1.0-1.7) Test 01/10/20 15:00 Heparin Anti-Xa Act, Unfractionated 0.51 IU/mL (0.30-0.70) Assessment and Plan Assessmemt and Plan Problems Medical Problems: (1) NSTEMI (non-ST elevated myocardial infarction) Status: Acute Comment Review of Relevant I have reviewed the following items donna (where applicable) has been applied. Labs Laboratory Tests Test 01/09/20 00:01 01/09/20 00:35 01/09/20 00:37 01/09/20 02:46 White Blood Count 10.8 x10^3/uL (4.0-11.0) Red Blood Count 5.45 x10^6/uL (4.30-5.70) Hemoglobin 15.1 g/dL (13.0-17.5) Hematocrit 44.9 % (39.0-53.0) Mean Corpuscular Volume 82 fL (79-100) Mean Corpuscular Hemoglobin 28 pg (25-35) Mean Corpuscular Hemoglobin Concent 34 g/dL (31-37) Red Cell Distribution Width 13.6 % (11.5-14.5) Platelet Count 269 x10^3/uL (140-400) Neutrophils (%) (Auto) 64 % (31-73) Lymphocytes (%) (Auto) 26 % (24-48) Monocytes (%) (Auto) 9 % (0-9) Eosinophils (%) (Auto) 1 % (0-3) Basophils (%) (Auto) 1 % (0-3) Neutrophils # (Auto) 6.9 x10^3/uL (1.8-7.7) Lymphocytes # (Auto) 2.8 x10^3/uL (1.0-4.8) Monocytes # (Auto) 1.0 x10^3/uL (0.0-1.1) Eosinophils # (Auto) 0.1 x10^3/uL (0.0-0.7) Basophils # (Auto) 0.1 x10^3/uL (0.0-0.2) Platelet Estimate Adequate (ADEQUATE) Giant Platelets Occ Coronavirus (COVID-19)(PCR) Negative (NEGATIVE) Sodium Level 136 mmol/L (136-145) Potassium Level 4.6 mmol/L (3.5-5.1) Chloride Level 99 mmol/L (98-107) Carbon Dioxide Level 29 mmol/L (21-32) Anion Gap 8 (6-14) Blood Urea Nitrogen 13 mg/dL (8-26) Creatinine 1.2 mg/dL (0.7-1.3) Estimated GFR (Cockcroft-Gault) 75.5 BUN/Creatinine Ratio 11 (6-20) Glucose Level 257 mg/dL (70-99) Calcium Level 9.3 mg/dL (8.5-10.1) Total Bilirubin 0.2 mg/dL (0.2-1.0) Aspartate Amino Transf (AST/SGOT) 17 U/L (15-37) Alanine Aminotransferase (ALT/SGPT) 27 U/L (16-63) Alkaline Phosphatase 89 U/L (46-116) Troponin I Quantitative 0.118 ng/mL (0.000-0.055) 0.157 ng/mL (0.000-0.055) Total Protein 7.6 g/dL (6.4-8.2) Albumin 3.6 g/dL (3.4-5.0) Albumin/Globulin Ratio 0.9 (1.0-1.7) Lipase 67 U/L (73-393) Test 01/09/20 05:17 01/09/20 10:35 01/09/20 13:58 01/09/20 15:55 Troponin I Quantitative 0.162 ng/mL (0.000-0.055) 0.124 ng/mL (0.000-0.055) Heparin Anti-Xa Act, Unfractionated 0.57 IU/mL (0.30-0.70) Glucose (Fingerstick) 236 mg/dL (70-99) 241 mg/dL (70-99) Test 01/09/20 16:30 01/09/20 20:41 01/10/20 07:00 01/10/20 07:51 Heparin Anti-Xa Act, Unfractionated 0.41 IU/mL (0.30-0.70) 0.49 IU/mL (0.30-0.70) Glucose (Fingerstick) 319 mg/dL (70-99) 274 mg/dL (70-99) White Blood Count 7.5 x10^3/uL (4.0-11.0) Red Blood Count 5.25 x10^6/uL (4.30-5.70) Hemoglobin 14.2 g/dL (13.0-17.5) Hematocrit 44.1 % (39.0-53.0) Mean Corpuscular Volume 84 fL (79-100) Mean Corpuscular Hemoglobin 27 pg (25-35) Mean Corpuscular Hemoglobin Concent 32 g/dL (31-37) Red Cell Distribution Width 13.9 % (11.5-14.5) Platelet Count 181 x10^3/uL (140-400) Neutrophils (%) (Auto) 45 % (31-73) Lymphocytes (%) (Auto) 44 % (24-48) Monocytes (%) (Auto) 8 % (0-9) Eosinophils (%) (Auto) 3 % (0-3) Basophils (%) (Auto) 0 % (0-3) Neutrophils # (Auto) 3.3 x10^3/uL (1.8-7.7) Lymphocytes # (Auto) 3.3 x10^3/uL (1.0-4.8) Monocytes # (Auto) 0.6 x10^3/uL (0.0-1.1) Eosinophils # (Auto) 0.2 x10^3/uL (0.0-0.7) Basophils # (Auto) 0.0 x10^3/uL (0.0-0.2) Sodium Level 135 mmol/L (136-145) Potassium Level 4.5 mmol/L (3.5-5.1) Chloride Level 100 mmol/L (98-107) Carbon Dioxide Level 30 mmol/L (21-32) Anion Gap 5 (6-14) Blood Urea Nitrogen 17 mg/dL (8-26) Creatinine 1.1 mg/dL (0.7-1.3) Estimated GFR (Cockcroft-Gault) 83.5 BUN/Creatinine Ratio 15 (6-20) Glucose Level 306 mg/dL (70-99) Calcium Level 8.4 mg/dL (8.5-10.1) Total Bilirubin 0.2 mg/dL (0.2-1.0) Aspartate Amino Transf (AST/SGOT) 15 U/L (15-37) Alanine Aminotransferase (ALT/SGPT) 22 U/L (16-63) Alkaline Phosphatase 74 U/L (46-116) Total Protein 7.2 g/dL (6.4-8.2) Albumin 3.0 g/dL (3.4-5.0) Albumin/Globulin Ratio 0.7 (1.0-1.7) Test 01/10/20 12:14 01/10/20 15:00 Glucose (Fingerstick) 232 mg/dL (70-99) Heparin Anti-Xa Act, Unfractionated 0.51 IU/mL (0.30-0.70) Laboratory Tests Test 01/09/20 20:41 01/10/20 07:00 01/10/20 07:51 01/10/20 12:14 Glucose (Fingerstick) 319 mg/dL (70-99) 274 mg/dL (70-99) 232 mg/dL (70-99) White Blood Count 7.5 x10^3/uL (4.0-11.0) Red Blood Count 5.25 x10^6/uL (4.30-5.70) Hemoglobin 14.2 g/dL (13.0-17.5) Hematocrit 44.1 % (39.0-53.0) Mean Corpuscular Volume 84 fL (79-100) Mean Corpuscular Hemoglobin 27 pg (25-35) Mean Corpuscular Hemoglobin Concent 32 g/dL (31-37) Red Cell Distribution Width 13.9 % (11.5-14.5) Platelet Count 181 x10^3/uL (140-400) Neutrophils (%) (Auto) 45 % (31-73) Lymphocytes (%) (Auto) 44 % (24-48) Monocytes (%) (Auto) 8 % (0-9) Eosinophils (%) (Auto) 3 % (0-3) Basophils (%) (Auto) 0 % (0-3) Neutrophils # (Auto) 3.3 x10^3/uL (1.8-7.7) Lymphocytes # (Auto) 3.3 x10^3/uL (1.0-4.8) Monocytes # (Auto) 0.6 x10^3/uL (0.0-1.1) Eosinophils # (Auto) 0.2 x10^3/uL (0.0-0.7) Basophils # (Auto) 0.0 x10^3/uL (0.0-0.2) Heparin Anti-Xa Act, Unfractionated 0.49 IU/mL (0.30-0.70) Sodium Level 135 mmol/L (136-145) Potassium Level 4.5 mmol/L (3.5-5.1) Chloride Level 100 mmol/L (98-107) Carbon Dioxide Level 30 mmol/L (21-32) Anion Gap 5 (6-14) Blood Urea Nitrogen 17 mg/dL (8-26) Creatinine 1.1 mg/dL (0.7-1.3) Estimated GFR (Cockcroft-Gault) 83.5 BUN/Creatinine Ratio 15 (6-20) Glucose Level 306 mg/dL (70-99) Calcium Level 8.4 mg/dL (8.5-10.1) Total Bilirubin 0.2 mg/dL (0.2-1.0) Aspartate Amino Transf (AST/SGOT) 15 U/L (15-37) Alanine Aminotransferase (ALT/SGPT) 22 U/L (16-63) Alkaline Phosphatase 74 U/L (46-116) Total Protein 7.2 g/dL (6.4-8.2) Albumin 3.0 g/dL (3.4-5.0) Albumin/Globulin Ratio 0.7 (1.0-1.7) Test 01/10/20 15:00 Heparin Anti-Xa Act, Unfractionated 0.51 IU/mL (0.30-0.70) Medications Current Medications Sodium Chloride 1,000 ml @ 1,000 mls/hr 1X ONCE IV Last administered on 01/09/20at 00:55; Start 01/09/20 at 01:15; Stop 01/09/20 at 02:14; Status DC Heparin Sodium (Porcine) (Heparin Sodium) 4,000 unit 1X ONCE IV Last administered on 01/09/20at 02:54; Start 01/09/20 at 02:30; Stop 01/09/20 at 02:31; Status DC Heparin Sodium/ Dextrose 250 ml @ 0 mls/hr 1X ONCE IV Last administered on 01/09/20at 02:53; Start 01/09/20 at 02:30; Stop 01/09/20 at 02:31; Status DC Info (Anti-Coagulation Monitoring By Pharmacy) 1 each PRN DAILY PRN MC SEE COMMENTS Last administered on 01/09/20at 04:20; Start 01/09/20 at 02:30 Heparin Sodium/ Dextrose 250 ml @ 0 mls/hr CONT PRN IV PER PROTOCOL Last administered on 01/10/20at 01:09; Start 01/09/20 at 04:00 Heparin Sodium (Porcine) (Heparin Sodium) 2,500 unit PRN Q6HRS PRN IV FOR UFH LEVEL LESS THAN 0.2; Start 01/09/20 at 04:00 Aspirin (Aspirin Chewable) 81 mg DAILY PO ; Start 01/09/20 at 13:00; Stop 01/09/20 at 11:59; Status DC Atorvastatin Calcium (Lipitor) 40 mg DAILY PO Last administered on 01/10/20at 08:40; Start 01/09/20 at 13:00 Clonidine HCl (Catapres) 0.1 mg DAILY PO Last administered on 01/10/20at 08:39; Start 01/09/20 at 13:00 Clonidine HCl (Catapres) 0.2 mg HS PO Last administered on 01/09/20 20:59; Start 01/09/20 at 21:00 Isosorbide Mononitrate (Imdur) 30 mg DAILY PO Last administered on 01/10/20 08:39; Start 01/09/20 at 13:00 Duloxetine HCl (Cymbalta) 60 mg DAILY PO Last administered on 01/10/20 08:47; Start 01/09/20 at 13:00 Ibuprofen (Motrin) 400 mg BID PO Last administered on 01/10/20 08:39; Start 01/09/20 at 13:00 Losartan Potassium (Cozaar) 100 mg DAILY PO Last administered on 01/10/20 08:38; Start 01/09/20 at 13:00 Magnesium Oxide (Magnesium Oxide) 400 mg QHS PO Last administered on 01/09/20 20:57; Start 01/09/20 at 21:00 Insulin Glargine (Lantus Syringe) 24 unit QHS SQ Last administered on 01/09/20 21:18; Start 01/09/20 at 21:00 Insulin Glargine (Lantus Syringe) 40 unit DAILY SQ Last administered on 01/10/20 08:48; Start 01/09/20 at 12:30 Pregabalin (Lyrica) 150 mg BID PO Last administered on 01/10/20 08:40; Start 01/09/20 at 13:00 Aspirin (Edgar Aspirin) 325 mg DAILY PO Last administered on 01/10/20 08:39; Start 01/09/20 at 12:30 Metoprolol Tartrate (Lopressor) 25 mg BID PO Last administered on 01/10/20 08:40; Start 01/09/20 at 12:30 Insulin Human Lispro (HumaLOG) 0-9 UNITS TIDWMEALS SQ Last administered on 01/10/20 13:14; Start 01/09/20 at 17:00 Dextrose (Dextrose 50%-Water Syringe) 12.5 gm PRN Q15MIN PRN IV SEE COMMENTS; Start 01/09/20 at 16:45 Insulin Human Lispro (HumaLOG) 10 units TIDWMEALS SQ Last administered on 7/5/20at 13:15; Start 01/10/20 at 12:00 Active Scripts Active Reported Clonidine Hcl 0.1 Mg Tablet 0.1 Mg PO DAILY Humulin N (Nph, Human Insulin Isophane) 100 Unit/1 Ml Vial 40 Unit SQ DAILY08 Humulin N (Nph, Human Insulin Isophane) 100 Unit/1 Ml Vial 24 Unit SQ QPM Lyrica (Pregabalin) 150 Mg Capsule 150 Mg PO BID 30 Days Aspirin 81 Mg Tab.chew 81 Mg PO DAILY Cymbalta (Duloxetine Hcl) 60 Mg Capsule.dr 60 Mg PO DAILY Losartan Potassium 100 Mg Tablet 100 Mg PO DAILY Magnesium Citrate 100 Mg Tablet 400 Mg PO HS Clonidine Hcl 0.2 Mg Tablet 0.2 Mg PO HS Isosorbide Mononitrate Er (Isosorbide Mononitrate) 30 Mg Tab.er.24h 30 Mg PO DAILY Atorvastatin Calcium 40 Mg Tablet 40 Mg PO DAILY Humulin R (Insulin Regular, Human) 100 Unit/1 Ml Vial 1 Unit SQ ACHS sliding scale Ibuprofen 600 Mg Tablet 600 Mg PO BID Vitals/I & O Vital Sign - Last 24 Hours 01/09/20 01/09/20 01/09/20 01/09/20 19:43 20:27 20:58 20:59 Temp 98.7 98.7 Pulse 91 91 91 Resp 16 B/P (MAP) 107/66 (80) 107/66 107/66 Pulse Ox 94 O2 Delivery Room Air Room Air 01/09/20 01/10/20 01/10/20 01/10/20 22:41 03:29 07:00 08:17 Temp 98.5 97.6 98.3 98.5 97.6 98.3 Pulse 86 71 80 Resp 16 16 18 B/P (MAP) 114/70 (85) 101/65 (77) 121/78 (92) Pulse Ox 92 96 98 O2 Delivery Room Air Room Air Room Air Room Air 01/10/20 01/10/20 01/10/20 01/10/20 08:38 08:39 08:39 08:40 Pulse 88 88 88 B/P (MAP) 121/78 121/78 121/78 121/78 01/10/20 01/10/20 11:00 15:00 Temp 98.3 98.1 98.3 98.1 Pulse 71 74 Resp 18 18 B/P (MAP) 152/87 (108) 96/56 (69) Pulse Ox 97 96 O2 Delivery Room Air Room Air Intake and Output 01/09/20 01/09/20 01/10/20 15:00 23:00 07:00 Intake Total 0 ml 600 ml 500 ml Output Total 400 ml Balance -400 ml 600 ml 500 ml Justicifation of Admission Dx: Justifications for Admission: Justification of Admission Dx: Yes IA: Acute NSTEMI RONNELL CARDOZO MD Jan 10, 2020 16:39
[2020-01-10 19:50] VITALS: BP 104/60
[2020-01-10] MEDS: cloNIDine HCL 0.2 MG TABLET PO SCH (21:07)
[2020-01-10] MEDS: MAGNESIUM OXIDE 400 MG TABLET PO SCH (21:08)
[2020-01-10 23:26] VITALS: BP 108/57
[2020-01-11] VITALS (15 sets, daily range): BP systolic 97–140; BP diastolic 61–82
[2020-01-11] MEDS: INSULIN LISPRO 300 UNITS/3 ML VIAL. SQ SCH ×3 (08:00→16:45)
[2020-01-11] MEDS: cloNIDine HCL 0.1 MG TABLET PO SCH (11:41)
[2020-01-11] MEDS: IBUPROFEN 200 MG TABLET. PO SCH ×2 (11:41→21:24)
[2020-01-11] MEDS: LOSARTAN POTASSIUM 50 MG TABLET. PO SCH (11:42)
[2020-01-11] MEDS: ISOSORBIDE MONONITRATE ER 30 MG TAB.ER.24H PO SCH (11:43)
[2020-01-11] MEDS: ASPIRIN 325 MG TABLET PO SCH (11:43)
[2020-01-11] MEDS: DULoxetine HCL 30 MG CAPSULE.DR PO SCH (11:44)
[2020-01-11] MEDS: PREGABALIN 75 MG CAPSULE PO SCH ×2 (11:44→21:23)
[2020-01-11] MEDS: ATORVASTATIN CALCIUM 40 MG TABLET. PO SCH (11:47)
[2020-01-11] MEDS: METOPROLOL TART IMMED RELEASE 25 MG TABLET. PO SCH ×2 (11:47→21:24)
[2020-01-11] MEDS ORDERED: IODIXANOL 320 MG/ML 100 ML VIAL. ONE ×2 (12:28→13:35)
[2020-01-11] MEDS ORDERED: LIDOCAINE 1% PF 2 ML VIAL. ONE (12:28)
[2020-01-11] MEDS ORDERED: VERAPAMIL 5 MG/2 ML VIAL. ONE (12:58)
[2020-01-11] MEDS ORDERED: HEPARIN for IV BOLUS 10,000 UNIT/10 ML VIAL. ONE (12:58)
[2020-01-11] MEDS ORDERED: fentaNYL PF VIAL 100 MCG/2 ML VIAL ONE (12:58)
[2020-01-11] MEDS ORDERED: NITROGLYCERIN 200 MCG/2 ML SYRINGE FOR CATH/VASC LAB. ONE ×2 (12:58→13:48)
[2020-01-11] MEDS ORDERED: MIDAZOLAM HCL/PF 2 MG/2 ML VIAL. ONE (12:58)
[2020-01-11] MEDS ORDERED: BIVALIRUDIN 250 MG VIAL. IV ONE ×2 (13:23→14:00)
[2020-01-11] MEDS ORDERED: CONTRAST GIVEN. MC PRN (13:30)
[2020-01-11] MEDS ORDERED: NITROGLYCERIN 200 MCG/2 ML SYRINGE FOR CATH/VASC LAB. IART ONE ×2 (13:30→14:00)
[2020-01-11] MEDS ORDERED: LIDOCAINE 1% PF 2 ML VIAL. INJ ONE (13:30)
[2020-01-11] MEDS ORDERED: IODIXANOL 320 MG/ML 100 ML VIAL. IART ONE (13:30)
[2020-01-11] MEDS ORDERED: MIDAZOLAM HCL/PF 2 MG/2 ML VIAL. IV ONE (13:30)
[2020-01-11] MEDS ORDERED: VERAPAMIL 5 MG/2 ML VIAL. IART ONE (13:30)
[2020-01-11] MEDS ORDERED: fentaNYL PF VIAL 100 MCG/2 ML VIAL IV ONE (13:30)
[2020-01-11] MEDS ORDERED: HEPARIN for IV BOLUS 10,000 UNIT/10 ML VIAL. IART ONE (13:30)
[2020-01-11] MEDS ORDERED: ADENOSINE 90 MG/30 ML VIAL. IV ONE (13:48)
[2020-01-11] MEDS ORDERED: CLOPIDOGREL BISULFATE 75 MG TABLET PO ONE (14:00)
[2020-01-11] MEDS ORDERED: ADENOSINE 90 MG in IV NORMAL SALINE 50ML 90 ML IV ONE (14:00)
[2020-01-11] MEDS ORDERED: CLOPIDOGREL BISULFATE 75 MG TABLET ONE (14:11)
--- NOTE | 2020-01-11 14:14 | PDOC ---
MODERATE SEDATION ASSESSMENT RISKS/ALTERNATIVES Risks/Alternatives Risks and alternatives of this type of sedation and procedure discussed with: RISK/ALTERNATIVES: Patient H & P ON CHART H & P H & P on chart and reviewed for co-morbid conditions and appropriate labs. H&P ON CHART: Yes STATUS PREG STATUS ASSESSED: N/A MEDS/ALLERGIES REVIEWED Meds/Allergies Reviewed Medications and Allergies including time and route of recently administered narcotics and sedatives. MEDS/ALLERGIES REVIEWED: Yes ASA RATING ASA RATING: II AIRWAY ASSESSMENT Airway Assessment Airway patency, oral function limitations, presence of caps, crowns, dentures, partials, and ability to extend neck assessed. AIRWAY ASSESSMENT: Yes MALLAMPATI SCORE MALLAMPATI SCORE: II PRE-SEDATION ASSESSMENT PRE-SEDATION ASSESSMENT: Yes SAIRA BAILEY MD Jan 11, 2020 14:14
[2020-01-11] MEDS ORDERED: NITROGLYCERIN SUBLINGUAL 0.4 MG BOTTLE OF 25. SL PRN (14:15)
[2020-01-11] MEDS ORDERED: 0.9 % SODIUM CHLORIDE 10 ML DISP.SYRIN. IV PRN (14:15)
--- NOTE | 2020-01-11 14:45 | CARD ---
MR#: [id number] Date of Study: 01/11/2020 Ordering Physician: SAIRA AGUILAR, Referring Physician: SAIRA AGUILAR, Tech: RT Skyler (R) APPROVED REPORT Technologist: RT Skyler (R) Nurse: Astrid Kumari R.N. Procedure(s) performed: 1. Left heart catheterization, selective coronary angiography and left ventr iculography via right transradial approach 2. Instant wave free ratio (IFR) and fractional flow reserve (FFR) measurement of LAD stenosis and I FR measurement of RCA stenosis 3. Successful PCI/drug-eluting stent placement to the left circumflex artery FL TIME: 17.2 MIN DOSE: 134 GYCM2 CONTRAST: 222 ML MODERATE SEDATION: 77 MINUTES INDICATION The indication(s) include : non-STEMI . [facility] Clinical Frailty Scale [facility] Clinical Frailty Scale: Managing Well Heart Failure Heart Failure: No PROCEDURE NARRATIVE After explaining the risks, benefits and alternative options, informed consent was obtained from matthias ent. Patient was brought to the cardiac [employer] and right wrist was prepped and draped in the usual fashion after confirming a positive modified Jean's test. Arterial access was obtained in the righ t radial artery and a 6 Bangladeshi sheath was inserted. 6 Bangladeshi Eusebio catheter was used to perform j luis ective angiography of the left and right coronary arteries. 6 Bangladeshi pigtail catheter was used to pe rform left ventriculography. Since patient was found to have angiographically borderline significant stenosis involving the left anterior descending and right coronary arteries, a decision was made to perform Instant wave free ratio (IFR) measurement to assess the physiologic significance. The left m ain coronary artery was engaged with a 6 Bangladeshi XB 3.5 guide catheter and the stenosis in the midsegm ent of the left anterior descending artery was crossed with a [employer] Verrata pressure wire. IFR wing surement was made that came back borderline significant at 0.90. Hence we decided to pursue fraction al flow reserve (FFR) measurement. Patient was given intravenous adenosine infusion per protocol and FFR was measured. This was insignificant at 0.84. Subsequently, the right coronary artery was enga ged with a 6 Bangladeshi JR4 guide catheter and the stenosis the proximal segment was crossed with the saurabh e [employer] verrata pressure wire. IFR measurement was made that was insignificant at 0.95. Hence bot h of these lesions were not intervened upon. FINDINGS 1. Hemodynamics: Left ventricular end-diastolic pressure of 17 mmHg. No pullback gradient across th e aortic valve. 2. Left ventriculography: Moderate left ventricular systolic dysfunction with ejection fraction myesha mated at 35%. No significant mitral regurgitation seen. 3. Coronary angiography: a. The left main coronary artery arose from the left sinus of Valsalva, gave rise to the left anteri or descending and left circumflex arteries and did not show any significant stenosis. b. The left anterior descending artery showed 40 to 50% stenosis in the midsegment there was physiol ogically insignificant based on FFR measurement of 0.84. c. The left circumflex artery showed 90% bifurcation stenosis involving the distal segment of LCx, p roximal segments of OM1/OM 2. d. The right coronary artery was a large and dominant vessel arising from the right sinus of Valsalv a that showed 50 to 60% stenosis in the proximal segment that was physiologically insignificant based on IFR measurement of 0.95 and along 30% stenosis involving the midsegment. INTERVENTION The left main coronary artery was engaged with a 6 Bangladeshi XB 3.5 guide catheter and the bifurcation s tenosis in the left circumflex artery was crossed into the first obtuse marginal branch with a 0.014 inch [employer] pro-water guidewire. This was predilated with a 2.5 x 15 mm Euphora balloon following whi ch this was successfully treated with a 2.75 x 18 mm [place] Xience Tasha drug-eluting stent. Follow -up angiography showed resolution of the lesions in the distal LCx/OM1 0%. The OM 2 was small to med ium caliber vessel and hence we decided to manage the stenosis in the proximal segment medically. Pa manuelant tolerated the procedure well. Hemostasis was achieved using TR band. There were no immediate complications. ROSENDO Flow ROSENDO Flow (Pre-Intervention): ROSENDO-3 ROSENDO Flow (Post-Intervention): ROSENDO-3 Conclusion 1. 90% bifurcation stenosis involving the distal LCx/OM1/OM 2. Successful PCI/drug-eluting stent pl acement to LCx/OM1. 2. 40-50% stenosis involving the left anterior descending artery, physiologically insignificant base d on FFR measurement of 0.84. 50 to 60% stenosis involving the right coronary artery, physiologicall y insignificant based on IFR measurement of 0.95. 3. Moderate left ventricular systolic dysfunction with ejection fraction estimated at 35%. Recommendations 1. Aspirin 325 mg daily for 1 month followed by 81 mg daily 2. Plavix 75 mg daily 3. Optimization of medical therapy for chronic systolic heart failure 4. Repeat 2D echo in 3 months to evaluate the need for AICD implantation. Signed by : Saira Aguilar, Electronically Approved : 01/11/2020 14:44:29
[2020-01-11] MEDS: IV 1/2 NORMAL SALINE 1,000 ML IV SCH (16:37)
[2020-01-11] MEDS: INSULIN GLARGINE SYRINGE. SQ SCH ×2 (16:44→21:30)
[2020-01-11] MEDS: cloNIDine HCL 0.2 MG TABLET PO SCH (21:24)
[2020-01-11] MEDS: MAGNESIUM OXIDE 400 MG TABLET PO SCH (21:24)
[2020-01-12 02:44] VITALS: BP 129/70
[2020-01-12] MEDS: IV 1/2 NORMAL SALINE 1,000 ML IV SCH (02:46)
--- NOTE | 2020-01-12 06:48 | EKG ---
[facility] [address] [place] [address] Test Date: 2020-01-08 Test Time: 23:54:47 Pat Name: MESERET MIN Department: Room: Gender: M Vp Analysis: : 1960 Requested By: DEREK AL Order Number: [id number] Reading MD: Measurements Intervals [place] Rate: 122 P: 38 NC: 154 QRS: 21 QRSD: 84 T: 29 QT: 294 QTc: 420 Interpretive Statements SINUS TACHYCARDIA OTHERWISE NORMAL ECG RI6.02 No previous ECG available for comparison
--- NOTE | 2020-01-12 06:49 | EKG ---
[facility] [address] [place] [address] Test Date: 2020-01-09 Test Time: 02:51:15 Pat Name: MESERET MIN Department: Room: Gender: M Bobbin Winder: : 1960 Requested By: DEREK AL Order Number: [id number] Reading MD: Measurements Intervals [place] Rate: 107 P: -75 TX: 120 QRS: 16 QRSD: 84 T: 26 QT: 324 QTc: 438 Interpretive Statements SINUS TACHYCARDIA LEFT ATRIAL ABNORMALITY ABNORMAL ECG RI6.02 Compared to ECG 01/08/2020 23:54:47 Atrial abnormality now present
[2020-01-12 07:00] VITALS: BP 115/52
[2020-01-12] MEDS: INSULIN LISPRO 300 UNITS/3 ML VIAL. SQ SCH ×2 (07:52→11:58)
[2020-01-12] MEDS ORDERED: CLOPIDOGREL BISULFATE 75 MG TABLET PO SCH (08:00)
[2020-01-12] MEDS ORDERED: ASPIRIN ENTERIC COATED 325 MG TABLET.DR. PO SCH (08:00)
--- NOTE | 2020-01-12 08:39 | PDOC ---
PROGRESS NOTES Chief Complaint Chief Complaint A/P: Acute myocardial infarction. NSTEMI, htn, lipids Dm2 - add jardiance for CAD with CHF incarcerated state halfway Cardiac cath: Conclusion 1. 90% bifurcation stenosis involving the distal LCx/OM1/OM 2. Successful PCI/drug-eluting stent placement to LCx/OM1. 2. 40-50% stenosis involving the left anterior descending artery, physiologically insignificant based on FFR measurement of 0.84. 50 to 60% stenosis involving the right coronary artery, physiologically insignificant based on IFR measurement of 0.95. 3. Moderate left ventricular systolic dysfunction with ejection fraction estimated at 35%. Recommendations 1. Aspirin 325 mg daily for 1 month followed by 81 mg daily 2. Plavix 75 mg daily 3. Optimization of medical therapy for chronic systolic heart failure 4. Repeat 2D echo in 3 months to evaluate the need for AICD implantation. History of Present Illness History of Present Illness Mr Bernard is a 59yo M inmate at [facility] with PMHx HTN, DM2, CHF who was admitted for retrosternal chest pain starting 10pm on 01/07 that was relieved with NTG and ASA, came to ED, found with elevated troponin, peaked at 0.16. CV consulted, admitted on heparin GTT. 01/10: Cardiac cath - s/p KACY to left circumflex artery Glucose under 200. Chest pain resolved. He notes he has been struggling with leg pain and weakness for the past 6 months, but his acute problems have resolved. dispo per cardiology Vitals Vitals Vital Signs Date Time Temp Pulse Resp B/P (MAP) Pulse Ox O2 Delivery O2 Flow Rate FiO2 01/12/20 07:00 97.5 65 20 115/52 (73) 99 Room Air 97.5 01/11/20 19:40 2.0 Physical Exam General: Alert, Oriented X3 Heart: Regular rate Abdomen: Soft Extremities: No edema Labs LABS Laboratory Tests Test 01/11/20 11:17 01/11/20 16:20 01/11/20 21:22 01/12/20 07:18 Glucose (Fingerstick) 159 mg/dL (70-99) 137 mg/dL (70-99) 215 mg/dL (70-99) 134 mg/dL (70-99) Assessment and Plan Assessmemt and Plan Problems Medical Problems: (1) NSTEMI (non-ST elevated myocardial infarction) Status: Acute Comment Review of Relevant I have reviewed the following items donna (where applicable) has been applied. Labs Laboratory Tests Test 01/10/20 12:14 01/10/20 15:00 01/10/20 17:14 01/10/20 21:05 Glucose (Fingerstick) 232 mg/dL (70-99) 126 mg/dL (70-99) 205 mg/dL (70-99) Heparin Anti-Xa Act, Unfractionated 0.51 IU/mL (0.30-0.70) Test 01/11/20 05:20 01/11/20 07:30 01/11/20 11:17 01/11/20 16:20 Heparin Anti-Xa Act, Unfractionated 0.41 IU/mL (0.30-0.70) Glucose (Fingerstick) 182 mg/dL (70-99) 159 mg/dL (70-99) 137 mg/dL (70-99) Test 01/11/20 21:22 01/12/20 07:18 Glucose (Fingerstick) 215 mg/dL (70-99) 134 mg/dL (70-99) Laboratory Tests Test 01/11/20 11:17 01/11/20 16:20 01/11/20 21:22 01/12/20 07:18 Glucose (Fingerstick) 159 mg/dL (70-99) 137 mg/dL (70-99) 215 mg/dL (70-99) 134 mg/dL (70-99) Medications Current Medications Sodium Chloride 1,000 ml @ 1,000 mls/hr 1X ONCE IV Last administered on 01/09/20at 00:55; Start 01/09/20 at 01:15; Stop 01/09/20 at 02:14; Status DC Heparin Sodium (Porcine) (Heparin Sodium) 4,000 unit 1X ONCE IV Last administered on 01/09/20at 02:54; Start 01/09/20 at 02:30; Stop 01/09/20 at 02:31; Status DC Heparin Sodium/ Dextrose 250 ml @ 0 mls/hr 1X ONCE IV Last administered on 01/09/20at 02:53; Start 01/09/20 at 02:30; Stop 01/09/20 at 02:31; Status DC Info (Anti-Coagulation Monitoring By Pharmacy) 1 each PRN DAILY PRN MC SEE COMMENTS Last administered on 01/09/20at 04:20; Start 01/09/20 at 02:30; Stop 01/12/20 at 07:37; Status DC Heparin Sodium/ Dextrose 250 ml @ 0 mls/hr CONT PRN IV PER PROTOCOL Last administered on 01/10/20 21:20; Start 01/09/20 at 04:00; Stop 01/11/20 at 14:26; Status DC Heparin Sodium (Porcine) (Heparin Sodium) 2,500 unit PRN Q6HRS PRN IV FOR UFH LEVEL LESS THAN 0.2; Start 01/09/20 at 04:00; Stop 01/11/20 at 14:26; Status DC Aspirin (Aspirin Chewable) 81 mg DAILY PO ; Start 01/09/20 at 13:00; Stop 01/09/20 at 11:59; Status DC Atorvastatin Calcium (Lipitor) 40 mg DAILY PO Last administered on 01/11/20at 11:47; Start 01/09/20 at 13:00 Clonidine HCl (Catapres) 0.1 mg DAILY PO Last administered on 01/11/20 11:41; Start 01/09/20 at 13:00 Clonidine HCl (Catapres) 0.2 mg HS PO Last administered on 01/11/20 21:24; Start 01/09/20 at 21:00 Isosorbide Mononitrate (Imdur) 30 mg DAILY PO Last administered on 01/11/20 11:43; Start 01/09/20 at 13:00 Duloxetine HCl (Cymbalta) 60 mg DAILY PO Last administered on 01/11/20 11:44; Start 01/09/20 at 13:00 Ibuprofen (Motrin) 400 mg BID PO Last administered on 01/11/20 21:24; Start 01/09/20 at 13:00 Losartan Potassium (Cozaar) 100 mg DAILY PO Last administered on 01/11/20 11:42; Start 01/09/20 at 13:00 Magnesium Oxide (Magnesium Oxide) 400 mg QHS PO Last administered on 01/11/20 21:24; Start 01/09/20 at 21:00 Insulin Glargine (Lantus Syringe) 24 unit QHS SQ Last administered on 7/6/20at 21:30; Start 01/09/20 at 21:00 Insulin Glargine (Lantus Syringe) 40 unit DAILY SQ Last administered on 01/11/20at 16:44; Start 01/09/20 at 12:30 Pregabalin (Lyrica) 150 mg BID PO Last administered on 01/11/20at 21:23; Start at 13:00 Aspirin (Edgar Aspirin) 325 mg DAILY PO Last administered on 01/11/20at 11:43; Start 01/09/20 at 12:30; Stop 01/12/20 at 07:56; Status DC Metoprolol Tartrate (Lopressor) 25 mg BID PO Last administered on 01/11/20at 21:24; Start 01/09/20 at 12:30 Insulin Human Lispro (HumaLOG) 0-9 UNITS TIDWMEALS SQ Last administered on 01/10/20at 13:14; Start 01/09/20 at 17:00 Dextrose (Dextrose 50%-Water Syringe) 12.5 gm PRN Q15MIN PRN IV SEE COMMENTS; Start 01/09/20 at 16:45 Insulin Human Lispro (HumaLOG) 10 units TIDWMEALS SQ Last administered on 01/10/20at 13:15; Start 01/10/20 at 12:00; Stop 01/10/20 at 17:25; Status DC Iodixanol (Visipaque 320) 100 ml STK-MED ONCE .ROUTE ; Start 01/11/20 at 12:28; Stop 01/11/20 at 12:28; Status DC Lidocaine HCl (Xylocaine-Mpf 1% 2ml Vial) 2 ml STK-MED ONCE .ROUTE ; Start 01/11/20 at 12:28; Stop 01/11/20 at 12:29; Status DC Heparin Sodium/ Sodium Chloride 500 ml @ As Directed STK-MED ONCE .ROUTE ; Start 01/11/20 at 12:28; Stop 01/11/20 at 12:29; Status DC Heparin Sodium/ Sodium Chloride 500 ml @ As Directed STK-MED ONCE .ROUTE ; Start 01/11/20 at 12:31; Stop 01/11/20 at 12:31; Status DC Fentanyl Citrate (Fentanyl 2ml Vial) 100 mcg STK-MED ONCE .ROUTE ; Start 01/11/20 at 12:58; Stop 01/11/20 at 12:58; Status DC Midazolam HCl (Versed) 2 mg STK-MED ONCE .ROUTE ; Start 01/11/20 at 12:58; Stop 01/11/20 at 12:58; Status DC Heparin Sodium (Porcine) (Heparin Sodium) 10,000 unit STK-MED ONCE .ROUTE ; Start 01/11/20 at 12:58; Stop 01/11/20 at 12:58; Status DC Verapamil HCl (Verapamil) 5 mg STK-MED ONCE .ROUTE ; Start 01/11/20 at 12:58; Stop 01/11/20 at 12:58; Status DC Nitroglycerin (Nitroglycerin) 200 mcg STK-MED ONCE .ROUTE ; Start 01/11/20 at 12:58; Stop 01/11/20 at 12:58; Status DC Nitroglycerin (Nitroglycerin) 200 mcg 1X ONCE IART Last administered on 01/11/20at 14:19; Start 01/11/20 at 13:30; Stop 01/11/20 at 13:32; Status DC Verapamil HCl (Verapamil) 2.5 mg 1X ONCE IART Last administered on 01/11/20at 14:24; Start 01/11/20 at 13:30; Stop 01/11/20 at 13:32; Status DC Heparin Sodium (Porcine) (Heparin Sodium) 2,500 unit 1X ONCE IART Last administered on 01/11/20at 14:21; Start 01/11/20 at 13:30; Stop 01/11/20 at 13:32; Status DC Heparin Sodium/ Sodium Chloride (HEPARIN for ARTERIAL LINE FLUSH) 1,000 unit 1X ONCE IART Last administered on 01/11/20at 14:17; Start 01/11/20 at 13:30; Stop 01/11/20 at 13:32; Status DC Midazolam HCl (Versed) 2 mg 1X ONCE IV Last administered on 01/11/20at 14:21; Start 01/11/20 at 13:30; Stop 01/11/20 at 13:32; Status DC Fentanyl Citrate (Fentanyl 2ml Vial) 100 mcg 1X ONCE IV Last administered on 01/11/20at 14:22; Start 01/11/20 at 13:30; Stop 01/11/20 at 13:32; Status DC Iodixanol (Visipaque 320) 100 ml 1X ONCE IART Last administered on 01/11/20at 14:17; Start 01/11/20 at 13:30; Stop 01/11/20 at 13:32; Status DC Lidocaine HCl (Xylocaine-Mpf 1% 2ml Vial) 2 ml 1X ONCE INJ Last administered on 01/11/20at 14:25; Start 01/11/20 at 13:30; Stop 01/11/20 at 13:32; Status DC Bivalirudin (Angiomax) 250 mg STK-MED ONCE IV ; Start 01/11/20 at 13:23; Stop 01/11/20 at 13:24; Status DC Info (CONTRAST GIVEN -- Rx MONITORING) 1 each PRN DAILY PRN MC SEE COMMENTS; Start 01/11/20 at 13:30; Stop 01/13/20 at 13:29 Iodixanol (Visipaque 320) 100 ml STK-MED ONCE .ROUTE ; Start 01/11/20 at 13:35; Stop 01/11/20 at 13:35; Status DC Adenosine (Adenoscan) 90 mg STK-MED ONCE IV ; Start 01/11/20 at 13:48; Stop 01/11/20 at 13:49; Status DC Nitroglycerin (Nitroglycerin) 200 mcg STK-MED ONCE .ROUTE ; Start 01/11/20 at 13:48; Stop 01/11/20 at 13:49; Status DC Nitroglycerin (Nitroglycerin) 200 mcg 1X ONCE IART Last administered on 01/11/20at 14:19; Start 01/11/20 at 14:00; Stop 01/11/20 at 14:03; Status DC Bivalirudin (Angiomax) 250 mg 1X ONCE IV Last administered on 01/11/20at 14:18; Start 01/11/20 at 14:00; Stop 01/11/20 at 14:03; Status DC Clopidogrel Bisulfate (Plavix) 600 mg 1X ONCE PO Last administered on 01/11/20at 14:17; Start 01/11/20 at 14:00; Stop 01/11/20 at 14:03; Status DC Adenosine 90 mg/ Sodium Chloride 120 ml @ 200 mls/hr 1X ONCE IV Last administered on 01/11/20at 14:18; Start 01/11/20 at 14:00; Stop 01/11/20 at 14:35; Status DC Clopidogrel Bisulfate (Plavix) 75 mg STK-MED ONCE .ROUTE ; Start 01/11/20 at 14:11; Stop 01/11/20 at 14:15; Status DC Sodium Chloride (Normal Saline Flush) 3 ml QSHIFT PRN IV AFTER MEDS AND BLOOD DRAWS; Start 01/11/20 at 14:15 Sodium Chloride 1,000 ml @ 75 mls/hr [id number] IV Last administered on 01/12/20at 02:46; Start 01/11/20 at 14:15 Aspirin (Ecotrin) 325 mg DAILYWBKFT PO ; Start 01/12/20 at 08:00 Clopidogrel Bisulfate (Plavix) 75 mg DAILYWBKFT PO ; Start 01/12/20 at 08:00 Nitroglycerin (Nitrostat) 0.4 mg PRN Q5MIN PRN SL CHEST PAIN; Start 01/11/20 at 14:15 Active Scripts Active Reported Clonidine Hcl 0.1 Mg Tablet 0.1 Mg PO DAILY Humulin N (Nph, Human Insulin Isophane) 100 Unit/1 Ml Vial 40 Unit SQ DAILY08 Humulin N (Nph, Human Insulin Isophane) 100 Unit/1 Ml Vial 24 Unit SQ QPM Lyrica (Pregabalin) 150 Mg Capsule 150 Mg PO BID 30 Days Aspirin 81 Mg Tab.chew 81 Mg PO DAILY Cymbalta (Duloxetine Hcl) 60 Mg Capsule.dr 60 Mg PO DAILY Losartan Potassium 100 Mg Tablet 100 Mg PO DAILY Magnesium Citrate 100 Mg Tablet 400 Mg PO HS Clonidine Hcl 0.2 Mg Tablet 0.2 Mg PO HS Isosorbide Mononitrate Er (Isosorbide Mononitrate) 30 Mg Tab.er.24h 30 Mg PO DAILY Atorvastatin Calcium 40 Mg Tablet 40 Mg PO DAILY Humulin R (Insulin Regular, Human) 100 Unit/1 Ml Vial 1 Unit SQ ACHS sliding scale Ibuprofen 600 Mg Tablet 600 Mg PO BID Vitals/I & O Vital Sign - Last 24 Hours 01/11/20 01/11/20 01/11/20 01/11/20 11:04 11:41 11:42 11:43 Temp 97.9 97.9 Pulse 62 62 62 62 Resp 18 B/P (MAP) 104/65 (78) 104/65 104/65 104/65 Pulse Ox 95 O2 Delivery Room Air 01/11/20 01/11/20 01/11/20 01/11/20 11:47 14:22 14:24 14:30 Pulse 62 65 75 Resp 14 14 B/P (MAP) 104/65 Pulse Ox 98 98 O2 Delivery Nasal Cannula Nasal Cannula O2 Flow Rate 2.0 2.0 01/11/20 01/11/20 01/11/20 01/11/20 14:45 14:45 15:00 15:15 Temp 97.5 97.5 Pulse 64 93 94 72 Resp 18 18 18 18 B/P (MAP) 103/62 (76) 103/78 (86) 110/65 (80) 117/72 (87) Pulse Ox 100 93 94 95 O2 Delivery Room Air Room Air Room Air Room Air 01/11/20 01/11/20 01/11/20 01/11/20 15:30 16:00 16:30 17:00 Pulse 69 76 69 67 Resp 18 18 18 18 B/P (MAP) 110/78 (89) 105/70 (82) 115/82 (93) 114/69 (84) Pulse Ox 95 98 97 97 O2 Delivery Room Air Room Air Room Air Room Air 01/11/20 01/11/20 01/11/20 01/11/20 17:30 18:00 19:00 19:40 Temp 98.5 98.5 Pulse 67 67 70 Resp 18 18 20 B/P (MAP) 106/65 (79) 126/68 (87) 112/61 (78) Pulse Ox 99 98 98 O2 Delivery Room Air Room Air Room Air Room Air O2 Flow Rate 2.0 01/11/20 01/11/20 01/11/20 01/12/20 21:24 21:24 22:54 02:44 Temp 98.3 98.1 98.3 98.1 Pulse 70 70 76 70 Resp 16 16 B/P (MAP) 112/61 112/61 140/70 (93) 129/70 (89) Pulse Ox 98 98 O2 Delivery Room Air Room Air 01/12/20 07:00 Temp 97.5 97.5 Pulse 65 Resp 20 B/P (MAP) 115/52 (73) Pulse Ox 99 O2 Delivery Room Air Intake and Output0 01/11/20 01/11/20 01/12/20 15:00 23:00 07:00 Intake Total 0 ml 240 ml 212 ml Output Total 1050 ml 600 ml Balance 0 ml -810 ml -388 ml Justicifation of Admission Dx: Justifications for Admission: Justification of Admission Dx: Yes VT: Acute NSTEMI ARMANDO REAGAN MD Jan 12, 2020 08:39
[2020-01-12] MEDS: PREGABALIN 75 MG CAPSULE PO SCH (08:42)
[2020-01-12] MEDS: DULoxetine HCL 30 MG CAPSULE.DR PO SCH (08:42)
[2020-01-12] MEDS: LOSARTAN POTASSIUM 50 MG TABLET. PO SCH (08:43)
[2020-01-12] MEDS: ISOSORBIDE MONONITRATE ER 30 MG TAB.ER.24H PO SCH (08:43)
[2020-01-12] MEDS: cloNIDine HCL 0.1 MG TABLET PO SCH (08:43)
[2020-01-12] MEDS: METOPROLOL TART IMMED RELEASE 25 MG TABLET. PO SCH (08:43)
[2020-01-12] MEDS: IBUPROFEN 200 MG TABLET. PO SCH (08:45)
[2020-01-12] MEDS: ATORVASTATIN CALCIUM 40 MG TABLET. PO SCH (08:50)
[2020-01-12] MEDS: INSULIN GLARGINE SYRINGE. SQ SCH (08:59)
--- NOTE | 2020-01-12 09:11 | PDOC ---
PROGRESS NOTES Chief Complaint Chief Complaint LATE entry, pt seen 01/10. eval, then computer down, could not DC, cv intervention done Acute myocardial infarction. NSTEMI, htn, lipids Dm2 - add jardiance for CAD with CHF [facility] Cardiac cath: Conclusion 1. 90% bifurcation stenosis involving the distal LCx/OM1/OM 2. Successful PCI/drug-eluting stent placement to LCx/OM1. 2. 40-50% stenosis involving the left anterior descending artery, physiologically insignificant based on FFR measurement of 0.84. 50 to 60% stenosis involving the right coronary artery, physiologically insignificant based on IFR measurement of 0.95. 3. Moderate left ventricular systolic dysfunction with ejection fraction estimated at 35%. Recommendations 1. Aspirin 325 mg daily for 1 month followed by 81 mg daily 2. Plavix 75 mg daily 3. Optimization of medical therapy for chronic systolic heart failure 4. Repeat 2D echo in 3 months to evaluate the need for AICD implantation. History of Present Illness History of Present Illness 01/10, cath, stent, Mr Bernard is a 59yo M inmate at [facility] with PMHx HTN, DM2, CHF who was admitted for retrosternal chest pain starting 10pm on 01/07 that was relieved with NTG and ASA, came to ED, found with elevated troponin, peaked at 0.16. CV consulted, admitted on heparin GTT. 01/10: Cardiac cath - s/p KACY to left circumflex artery Glucose under 200. dispo on results pedning Vitals Vitals Vital Signs Date Time Temp Pulse Resp B/P (MAP) Pulse Ox O2 Delivery O2 Flow Rate FiO2 01/12/20 08:43 65 115/52 01/12/20 07:00 97.5 20 99 Room Air 97.5 01/11/20 19:40 2.0 Physical Exam General: Alert, Oriented X3 Heart: Regular rate Abdomen: Soft Extremities: No edema Labs LABS Laboratory Tests Test 01/11/20 11:17 01/11/20 16:20 01/11/20 21:22 01/12/20 07:18 Glucose (Fingerstick) 159 mg/dL (70-99) 137 mg/dL (70-99) 215 mg/dL (70-99) 134 mg/dL (70-99) Assessment and Plan Assessmemt and Plan Problems Medical Problems: (1) NSTEMI (non-ST elevated myocardial infarction) Status: Acute Comment Review of Relevant I have reviewed the following items donna (where applicable) has been applied. Labs Laboratory Tests Test 01/10/20 12:14 01/10/20 15:00 01/10/20 17:14 01/10/20 21:05 Glucose (Fingerstick) 232 mg/dL (70-99) 126 mg/dL (70-99) 205 mg/dL (70-99) Heparin Anti-Xa Act, Unfractionated 0.51 IU/mL (0.30-0.70) Test 01/11/20 05:20 01/11/20 07:30 01/11/20 11:17 01/11/20 16:20 Heparin Anti-Xa Act, Unfractionated 0.41 IU/mL (0.30-0.70) Glucose (Fingerstick) 182 mg/dL (70-99) 159 mg/dL (70-99) 137 mg/dL (70-99) Test 01/11/20 21:22 01/12/20 07:18 Glucose (Fingerstick) 215 mg/dL (70-99) 134 mg/dL (70-99) Laboratory Tests Test 01/11/20 11:17 01/11/20 16:20 01/11/20 21:22 01/12/20 07:18 Glucose (Fingerstick) 159 mg/dL (70-99) 137 mg/dL (70-99) 215 mg/dL (70-99) 134 mg/dL (70-99) Medications Current Medications Sodium Chloride 1,000 ml @ 1,000 mls/hr 1X ONCE IV Last administered on 01/09/20at 00:55; Start 01/09/20 at 01:15; Stop 01/09/20 at 02:14; Status DC Heparin Sodium (Porcine) (Heparin Sodium) 4,000 unit 1X ONCE IV Last administered on 01/09/20at 02:54; Start 01/09/20 at 02:30; Stop 01/09/20 at 02:31; Status DC Heparin Sodium/ Dextrose 250 ml @ 0 mls/hr 1X ONCE IV Last administered on 01/09/20at 02:53; Start 01/09/20 at 02:30; Stop 01/09/20 at 02:31; Status DC Info (Anti-Coagulation Monitoring By Pharmacy) 1 each PRN DAILY PRN MC SEE COMMENTS Last administered on 01/09/20at 04:20; Start 01/09/20 at 02:30; Stop 01/12/20 at 07:37; Status DC Heparin Sodium/ Dextrose 250 ml @ 0 mls/hr CONT PRN IV PER PROTOCOL Last administered on 01/10/20 21:20; Start 01/09/20 at 04:00; Stop 01/11/20 at 14:26; Status DC Heparin Sodium (Porcine) (Heparin Sodium) 2,500 unit PRN Q6HRS PRN IV FOR UFH LEVEL LESS THAN 0.2; Start 01/09/20 at 04:00; Stop 01/11/20 at 14:26; Status DC Aspirin (Aspirin Chewable) 81 mg DAILY PO ; Start 01/09/20 at 13:00; Stop 01/09/20 at 11:59; Status DC Atorvastatin Calcium (Lipitor) 40 mg DAILY PO Last administered on 01/12/20at 08:50; Start 01/09/20 at 13:00 Clonidine HCl (Catapres) 0.1 mg DAILY PO Last administered on 01/12/20 08:43; Start 01/09/20 at 13:00 Clonidine HCl (Catapres) 0.2 mg HS PO Last administered on 01/11/20 21:24; Start 01/09/20 at 21:00 Isosorbide Mononitrate (Imdur) 30 mg DAILY PO Last administered on 01/12/20 08:43; Start 01/09/20 at 13:00 Duloxetine HCl (Cymbalta) 60 mg DAILY PO Last administered on 01/12/20 08:42; Start 01/09/20 at 13:00 Ibuprofen (Motrin) 400 mg BID PO Last administered on 01/12/20 08:45; Start 01/09/20 at 13:00 Losartan Potassium (Cozaar) 100 mg DAILY PO Last administered on 01/12/20 08:43; Start 01/09/20 at 13:00 Magnesium Oxide (Magnesium Oxide) 400 mg QHS PO Last administered on 01/11/20 21:24; Start 01/09/20 at 21:00 Insulin Glargine (Lantus Syringe) 24 unit QHS SQ Last administered on 7/6/20at 21:30; Start 01/09/20 at 21:00 Insulin Glargine (Lantus Syringe) 40 unit DAILY SQ Last administered on 01/12/20at 08:59; Start 01/09/20 at 12:30 Pregabalin (Lyrica) 150 mg BID PO Last administered on 01/12/20at 08:42; Start 01/09/20 at 13:00 Aspirin (Edgar Aspirin) 325 mg DAILY PO Last administered on 01/11/20at 11:43; Start 01/09/20 at 12:30; Stop 01/12/20 at 07:56; Status DC Metoprolol Tartrate (Lopressor) 25 mg BID PO Last administered on 01/12/20at 08:43; Start 01/09/20 at 12:30 Insulin Human Lispro (HumaLOG) 0-9 UNITS TIDWMEALS SQ Last administered on 01/10/20at 13:14; Start 01/09/20 at 17:00 Dextrose (Dextrose 50%-Water Syringe) 12.5 gm PRN Q15MIN PRN IV SEE COMMENTS; Start 01/09/20 at 16:45 Insulin Human Lispro (HumaLOG) 10 units TIDWMEALS SQ Last administered on 01/10/20at 13:15; Start 01/10/20 at 12:00; Stop 01/10/20 at 17:25; Status DC Iodixanol (Visipaque 320) 100 ml STK-MED ONCE .ROUTE ; Start 01/11/20 at 12:28; Stop 01/11/20 at 12:28; Status DC Lidocaine HCl (Xylocaine-Mpf 1% 2ml Vial) 2 ml STK-MED ONCE .ROUTE ; Start 01/11/20 at 12:28; Stop 01/11/20 at 12:29; Status DC Heparin Sodium/ Sodium Chloride 500 ml @ As Directed STK-MED ONCE .ROUTE ; Start 01/11/20 at 12:28; Stop 01/11/20 at 12:29; Status DC Heparin Sodium/ Sodium Chloride 500 ml @ As Directed STK-MED ONCE .ROUTE ; Start 01/11/20 at 12:31; Stop 01/11/20 at 12:31; Status DC Fentanyl Citrate (Fentanyl 2ml Vial) 100 mcg STK-MED ONCE .ROUTE ; Start 01/11/20 at 12:58; Stop 01/11/20 at 12:58; Status DC Midazolam HCl (Versed) 2 mg STK-MED ONCE .ROUTE ; Start 01/11/20 at 12:58; Stop 01/11/20 at 12:58; Status DC Heparin Sodium (Porcine) (Heparin Sodium) 10,000 unit STK-MED ONCE .ROUTE ; Start 01/11/20 at 12:58; Stop 01/11/20 at 12:58; Status DC Verapamil HCl (Verapamil) 5 mg STK-MED ONCE .ROUTE ; Start 01/11/20 at 12:58; Stop 01/11/20 at 12:58; Status DC Nitroglycerin (Nitroglycerin) 200 mcg STK-MED ONCE .ROUTE ; Start 01/11/20 at 12:58; Stop 01/11/20 at 12:58; Status DC Nitroglycerin (Nitroglycerin) 200 mcg 1X ONCE IART Last administered on 01/11/20at 14:19; Start 01/11/20 at 13:30; Stop 01/11/20 at 13:32; Status DC Verapamil HCl (Verapamil) 2.5 mg 1X ONCE IART Last administered on 01/11/20at 14:24; Start 01/11/20 at 13:30; Stop 01/11/20 at 13:32; Status DC Heparin Sodium (Porcine) (Heparin Sodium) 2,500 unit 1X ONCE IART Last administered on 01/11/20at 14:21; Start 01/11/20 at 13:30; Stop 01/11/20 at 13:32; Status DC Heparin Sodium/ Sodium Chloride (HEPARIN for ARTERIAL LINE FLUSH) 1,000 unit 1X ONCE IART Last administered on 01/11/20at 14:17; Start 01/11/20 at 13:30; Stop 01/11/20 at 13:32; Status DC Midazolam HCl (Versed) 2 mg 1X ONCE IV Last administered on 01/11/20at 14:21; Start 01/11/20 at 13:30; Stop 01/11/20 at 13:32; Status DC Fentanyl Citrate (Fentanyl 2ml Vial) 100 mcg 1X ONCE IV Last administered on 01/11/20at 14:22; Start 01/11/20 at 13:30; Stop 01/11/20 at 13:32; Status DC Iodixanol (Visipaque 320) 100 ml 1X ONCE IART Last administered on 01/11/20at 14:17; Start 01/11/20 at 13:30; Stop 01/11/20 at 13:32; Status DC Lidocaine HCl (Xylocaine-Mpf 1% 2ml Vial) 2 ml 1X ONCE INJ Last administered on 01/11/20at 14:25; Start 01/11/20 at 13:30; Stop 01/11/20 at 13:32; Status DC Bivalirudin (Angiomax) 250 mg STK-MED ONCE IV ; Start 01/11/20 at 13:23; Stop 01/11/20 at 13:24; Status DC Info (CONTRAST GIVEN -- Rx MONITORING) 1 each PRN DAILY PRN MC SEE COMMENTS; Start 01/11/20 at 13:30; Stop 01/13/20 at 13:29 Iodixanol (Visipaque 320) 100 ml STK-MED ONCE .ROUTE ; Start 01/11/20 at 13:35; Stop 01/11/20 at 13:35; Status DC Adenosine (Adenoscan) 90 mg STK-MED ONCE IV ; Start 01/11/20 at 13:48; Stop 01/11/20 at 13:49; Status DC Nitroglycerin (Nitroglycerin) 200 mcg STK-MED ONCE .ROUTE ; Start 01/11/20 at 13:48; Stop 01/11/20 at 13:49; Status DC Nitroglycerin (Nitroglycerin) 200 mcg 1X ONCE IART Last administered on 01/11/20at 14:19; Start 01/11/20 at 14:00; Stop 01/11/20 at 14:03; Status DC Bivalirudin (Angiomax) 250 mg 1X ONCE IV Last administered on 01/11/20at 14:18; Start 01/11/20 at 14:00; Stop 01/11/20 at 14:03; Status DC Clopidogrel Bisulfate (Plavix) 600 mg 1X ONCE PO Last administered on 01/11/20at 14:17; Start 01/11/20 at 14:00; Stop 01/11/20 at 14:03; Status DC Adenosine 90 mg/ Sodium Chloride 120 ml @ 200 mls/hr 1X ONCE IV Last administered on 01/11/20at 14:18; Start 01/11/20 at 14:00; Stop 01/11/20 at 14:35; Status DC Clopidogrel Bisulfate (Plavix) 75 mg STK-MED ONCE .ROUTE ; Start 01/11/20 at 14:11; Stop 01/11/20 at 14:15; Status DC Sodium Chloride (Normal Saline Flush) 3 ml QSHIFT PRN IV AFTER MEDS AND BLOOD DRAWS; Start 01/11/20 at 14:15 Sodium Chloride 1,000 ml @ 75 mls/hr [id number] IV Last administered on 01/12/20at 02:46; Start 01/11/20 at 14:15 Aspirin (Ecotrin) 325 mg DAILYWBKFT PO Last administered on 01/12/20at 08:43; Start 01/12/20 at 08:00 Clopidogrel Bisulfate (Plavix) 75 mg DAILYWBKFT PO Last administered on 01/12/20at 08:43; Start 01/12/20 at 08:00 Nitroglycerin (Nitrostat) 0.4 mg PRN Q5MIN PRN SL CHEST PAIN; Start 01/11/20 at 14:15 Active Scripts Active Reported Clonidine Hcl 0.1 Mg Tablet 0.1 Mg PO DAILY Humulin N (Nph, Human Insulin Isophane) 100 Unit/1 Ml Vial 40 Unit SQ DAILY08 Humulin N (Nph, Human Insulin Isophane) 100 Unit/1 Ml Vial 24 Unit SQ QPM Lyrica (Pregabalin) 150 Mg Capsule 150 Mg PO BID 30 Days Aspirin 81 Mg Tab.chew 81 Mg PO DAILY Cymbalta (Duloxetine Hcl) 60 Mg Capsule.dr 60 Mg PO DAILY Losartan Potassium 100 Mg Tablet 100 Mg PO DAILY Magnesium Citrate 100 Mg Tablet 400 Mg PO HS Clonidine Hcl 0.2 Mg Tablet 0.2 Mg PO HS Isosorbide Mononitrate Er (Isosorbide Mononitrate) 30 Mg Tab.er.24h 30 Mg PO DAILY Atorvastatin Calcium 40 Mg Tablet 40 Mg PO DAILY Humulin R (Insulin Regular, Human) 100 Unit/1 Ml Vial 1 Unit SQ ACHS sliding scale Ibuprofen 600 Mg Tablet 600 Mg PO BID Vitals/I & O Vital Sign - Last 24 Hours 01/11/20 01/11/20 01/11/20 01/11/20 11:04 11:41 11:42 11:43 Temp 97.9 97.9 Pulse 62 62 62 62 Resp 18 B/P (MAP) 104/65 (78) 104/65 104/65 104/65 Pulse Ox 95 O2 Delivery Room Air 01/11/20 01/11/20 01/11/20 01/11/20 11:47 14:22 14:24 14:30 Pulse 62 65 75 Resp 14 14 B/P (MAP) 104/65 Pulse Ox 98 98 O2 Delivery Nasal Cannula Nasal Cannula O2 Flow Rate 2.0 2.0 01/11/20 01/11/20 01/11/20 01/11/20 14:45 14:45 15:00 15:15 Temp 97.5 97.5 Pulse 64 93 94 72 Resp 18 18 18 18 B/P (MAP) 103/62 (76) 103/78 (86) 110/65 (80) 117/72 (87) Pulse Ox 100 93 94 95 O2 Delivery Room Air Room Air Room Air Room Air 01/11/20 01/11/20 01/11/20 01/11/20 15:30 16:00 16:30 17:00 Pulse 69 76 69 67 Resp 18 18 18 18 B/P (MAP) 110/78 (89) 105/70 (82) 115/82 (93) 114/69 (84) Pulse Ox 95 98 97 97 O2 Delivery Room Air Room Air Room Air Room Air 01/11/20 01/11/20 01/11/20 01/11/20 17:30 18:00 19:00 19:40 Temp 98.5 98.5 Pulse 67 67 70 Resp 18 18 20 B/P (MAP) 106/65 (79) 126/68 (87) 112/61 (78) Pulse Ox 99 98 98 O2 Delivery Room Air Room Air Room Air Room Air O2 Flow Rate 2.0 01/11/20 01/11/20 01/11/20 01/12/20 21:24 21:24 22:54 02:44 Temp 98.3 98.1 98.3 98.1 Pulse 70 70 76 70 Resp 16 16 B/P (MAP) 112/61 112/61 140/70 (93) 129/70 (89) Pulse Ox 98 98 O2 Delivery Room Air Room Air 01/12/20 01/12/20 01/12/20 01/12/20 07:00 08:43 08:43 08:43 Temp 97.5 97.5 Pulse 65 65 65 65 Resp 20 B/P (MAP) 115/52 (73) 115/52 115/52 115/52 Pulse Ox 99 O2 Delivery Room Air 01/12/20 08:43 Pulse 65 B/P (MAP) 115/52 Intake and Output 01/11/20 01/11/20 01/12/20 15:00 23:00 07:00 Intake Total 0 ml 240 ml 212 ml Output Total 1050 ml 600 ml Balance 0 ml -810 ml -388 ml Justicifation of Admission Dx: Justifications for Admission: Justification of Admission Dx: Yes [place]: Acute NSTEMI RONNELL CARDOZO MD Jan 12, 2020 09:11
[2020-01-12] MEDS ORDERED: LINAGLIPTIN 5 MG TABLET PO SCH (10:00)
[2020-01-12 10:31] VITALS: BP 122/68
--- NOTE | 2020-01-12 11:02 | PDOC ---
JULI CHEN ANALYTICAL DATA SCIENTIST 01/12/20 1102: CARDIO Progress Notes Date and Time Date of Service 01/12/20 Time of Evaluation 1045 Subjective Subjective: No Chest Pain, No shortness of breath, No Palpitations Vitals Vitals Vital Signs Date Time Temp Pulse Resp B/P (MAP) Pulse Ox O2 Delivery O2 Flow Rate FiO2 01/12/20 10:31 98.0 76 20 122/68 (86) 98 Room Air 98.0 01/11/20 19:40 2.0 Weight Weight [ ] Input and Output Intake and Output Intake and Output 01/12/20 07:00 Intake Total 452 ml Output Total 1650 ml Balance -1198 ml Intake Oral 452 ml Output Urine Total 1650 ml Laboratory Labs Laboratory Tests Test 01/11/20 11:17 01/11/20 16:20 01/11/20 21:22 01/12/20 07:18 Glucose (Fingerstick) 159 mg/dL (70-99) 137 mg/dL (70-99) 215 mg/dL (70-99) 134 mg/dL (70-99) Physical Exam HEENT: Neck Supple W Full Motion Chest: Symmetric LUNGS: Clear to Auscultation Heart: S1S2, RRR Abdomen: Soft N/T Extremities: No Edema, Other (right radial arteriotomy site soft, clean, and dry. Ne hematoma present. Neurovascular status intact.) Neurology: alert, oriented, follow commands Assessment Assessment 1. CAD; cath with 90% bifurcation stenosis involving the distal LCx/OM1/OM 2. S/p successful PCI/KACY to LCx/OM1. Moderate disease of the LAD and RCA, physiologically insignificant based on IFR 2. Ischemic cardiomyopathy; cath LVEF 35% 3. Chronic systolic CHF; appears clinically compensated 4. Hypertension; controlled 5. Hyperlipidemia; statin 6. Diabetes, II; as per IM Recommendations Lipids Secondary prevention measures including DAPT with ASA/Plavix. ASA 535mg x1 month and 81mg thereafter Aspirin 325 mg daily for 1 month followed by 81 mg daily Optimization of medical therapy for chronic systolic heart failure; continue ARB, convert metoprolol tartrate to succinate Repeat 2D echo in 3 months to evaluate the need for AICD implantation. Follow up in our office with Dr. Aguilar as scheduled. Justicifation of Admission Dx: Justifications for Admission: Justification of Admission Dx: Yes [place]: Acute NSTEMI SAIRA AGUILAR MD 01/12/20 1422: CARDIO Progress Notes Assessment Assessment Patient seen and examined. Agree with [facility]'s assessment and plan. s/p PCI/KACY to OM/LCx with moderate residual lesions involving LAD/RCA Patient chest pain-free. Continue dual antiplatelet therapy. Chronic systolic heart failure well compensated. Repeat 2D echo in 3 months to evaluate the need for AICD Okay for discharge from cardiac standpoint JULI CHEN APRN Jan 12, 2020 11:02 SAIRA AGUILAR MD Jan 12, 2020 14:22
[2020-01-12 11:24] LABS: CHOLESTEROL/HDL RATIO 2.7
[2020-01-12 11:54] VITALS: BP 122/68
[2020-01-12] MEDS ORDERED: METOPROLOL SUCC 24HR ER 50 MG TAB.ER.24H. PO SCH (12:00)
[2020-01-12] MEDS ORDERED: ASPI-630 PO (12:47)
[2020-01-12] MEDS ORDERED: EMPA10TA PO (12:47)
[2020-01-12] MEDS ORDERED: LINA5TAB PO (12:47)
[2020-01-12] MEDS ORDERED: ASPI325T11 PO (12:47)
[2020-01-12] MEDS ORDERED: METO50TA4 PO (12:47)
[2020-01-12] MEDS ORDERED: CLOP75TA PO (12:47)
[2020-01-12] MEDS ORDERED: METF10007 PO (12:47)
[2020-01-12] MEDS ORDERED: NITR0.4T24 SL (12:47)
--- NOTE | 2020-01-12 12:50 | SNU/HH DC ---
DISCHARGE ORDERS DISCHARGE INFORMATION: DISCHARGE DATE: Jan 12, 2020 FINAL DIAGNOSIS Problems Medical Problems: (1) NSTEMI (non-ST elevated myocardial infarction) Status: Acute CONDITION ON DISCHARGE: Stable CODE STATUS: Code Status: Full POST DISCHARGE ORDERS: ACTIVITY ORDERS: Resume previous activity WEIGHT BEARING STATUS: Full weight bearing DIET AFTER DISCHARGE: ADA WOUND/INCISION CARE: Reinforce dressing PRN CHECKS AFTER DISCHARGE: CHECKS AFTER DISCHARGE: Check blood press - daily, Check blood sugar, ac/hs, Weigh Yourself Daily FOLLOW-UP: PHYSICIAN FOLLOW-UP: Dr Jerry Aguilar LAB ORDERS FOR FOLLOW-UP: BMP monthly DISCHARGE MEDICATIONS: Home Meds Active Scripts Metformin Hcl (METFORMIN HCL) 1,000 Mg Tablet, 1000 MG PO BIDWMEALS for DM2 for 90 Days, #180 TAB 3 Refills Prov:ARMANDO REAGAN MD 01/12/20 Empagliflozin (Jardiance) 10 Mg Tablet, 10 MG PO DAILY for DM2/CHF for 90 Days, #90 TAB 3 Refills Prov:ARMANDO REAGAN MD 01/12/20 Aspirin (ASPIRIN EC) 325 Mg Tablet.dr, 325 MG PO DAILYWBKFT for CAD for 30 Days, #30 TAB.SR Prov:ARMANDO REAGAN MD 01/12/20 Metoprolol Succinate (Toprol XL) 50 Mg Tab.er.24h, 50 MG PO DAILY for CAD for 90 Days, #90 TAB.SR 3 Refills Prov:ARMANDO REAGAN MD 01/12/20 Linagliptin (TRADJENTA) 5 Mg Tablet, 5 MG PO DAILY for DM2 for 30 Days, #30 TAB 11 Refills Prov:ARMANDO REAGAN MD 01/12/20 Nitroglycerin (NITROSTAT) 0.4 Mg Tab.subl, 0.4 MG SL PRN Q5MIN PRN for CHEST PAIN for 30 Days, #9 TAB 2 Refills Prov:ARMANDO REAGAN MD 01/12/20 Clopidogrel Bisulfate (CLOPIDOGREL) 75 Mg Tablet, 75 MG PO DAILYWBKFT for CAD s/p Stent for 90 Days, #90 TAB 3 Refills Prov:ARMANDO REAGAN MD 01/12/20 Aspirin (ASPIRIN) 81 Mg Tab.chew, 81 MG PO DAILY for heart for 90 Days, #90 TAB.CHEW 3 Refills Prov:ARMANDO REAGAN MD 01/12/20 Reported Medications Clonidine Hcl (CLONIDINE HCL) 0.1 Mg Tablet, 0.1 MG PO DAILY for htn, TAB 01/09/20 Nph, Human Insulin Isophane (HUMULIN N) 100 Unit/1 Ml Vial, 40 UNIT SQ DAILY08 for dm, EACH 01/09/20 Nph, Human Insulin Isophane (HUMULIN N) 100 Unit/1 Ml Vial, 24 UNIT SQ QPM for dm, EACH 01/09/20 Pregabalin (LYRICA) 150 Mg Capsule, 150 MG PO BID for pain for 30 Days, CAP 01/09/20 Duloxetine Hcl (CYMBALTA) 60 Mg Capsule.dr, 60 MG PO DAILY for dep, CAP 01/09/20 Losartan Potassium (LOSARTAN POTASSIUM) 100 Mg Tablet, 100 MG PO DAILY for HYPERTENSION, TAB 01/09/20 Magnesium Citrate (MAGNESIUM CITRATE) 100 Mg Tablet, 400 MG PO HS for pain, TAB 01/09/20 Clonidine Hcl (CLONIDINE HCL) 0.2 Mg Tablet, 0.2 MG PO HS for BP, TAB 01/09/20 Isosorbide Mononitrate (ISOSORBIDE MONONITRATE ER) 30 Mg Tab.er.24h, 30 MG PO DAILY for heart, TAB.SR 01/09/20 Atorvastatin Calcium (ATORVASTATIN CALCIUM) 40 Mg Tablet, 40 MG PO DAILY for FOR CHOLESTEROL, #30 TAB 0 Refills 01/09/20 Insulin Regular, Human (HUMULIN R) 100 Unit/1 Ml Vial, 1 UNIT SQ achs for dm, EACH sliding scale 01/09/20 Discontinued Reported Medications Ibuprofen (IBUPROFEN) 600 Mg Tablet, 600 MG PO BID for pain, TAB 01/09/20 ARMANDO REAGAN MD Jan 12, 2020 12:50
--- NOTE | 2020-01-12 12:52 | PDOC3 ---
Discharge Summary Visit Information Date of Admission: Jan 09, 2020 Date of Discharge: Jan 12, 2020 Admitting Diagnosis: NSTEMI Final Diagnosis Problems Medical Problems: (1) NSTEMI (non-ST elevated myocardial infarction) Status: Acute Brief Hospital Course Allergies Allergies Coded Allergies Type Severity Reaction Last Updated Verified azithromycin Allergy Intermediate PANIC ATTACK 01/09/20 Yes Vital Signs Vital Signs Date Time Temp Pulse Resp B/P (MAP) Pulse Ox O2 Delivery O2 Flow Rate FiO2 01/12/20 11:54 76 122/68 01/12/20 10:31 98.0 20 98 Room Air 98.0 01/11/20 19:40 2.0 Lab Results Laboratory Tests Test 01/10/20 15:00 01/10/20 17:14 01/10/20 21:05 01/11/20 05:20 Heparin Anti-Xa Act, Unfractionated 0.51 IU/mL (0.30-0.70) 0.41 IU/mL (0.30-0.70) Glucose (Fingerstick) 126 mg/dL (70-99) 205 mg/dL (70-99) Triglycerides Level 77 mg/dL (0-150) Cholesterol Level 78 mg/dL (0-200) LDL Cholesterol, Calculated 34 mg/dL (0-100) VLDL Cholesterol, Calculated 15 mg/dL (0-40) Non-HDL Cholesterol Calculated 49 mg/dL (0-129) HDL Cholesterol 29 mg/dL (40-60) Cholesterol/HDL Ratio 2.7 Test 01/11/20 07:30 01/11/20 11:17 01/11/20 16:20 01/11/20 21:22 Glucose (Fingerstick) 182 mg/dL (70-99) 159 mg/dL (70-99) 137 mg/dL (70-99) 215 mg/dL (70-99) Test 01/12/20 07:18 01/12/20 11:19 Glucose (Fingerstick) 134 mg/dL (70-99) 157 mg/dL (70-99) Laboratory Tests Test 01/11/20 16:20 01/11/20 21:22 01/12/20 07:18 01/12/20 11:19 Glucose (Fingerstick) 137 mg/dL (70-99) 215 mg/dL (70-99) 134 mg/dL (70-99) 157 mg/dL (70-99) Brief Hospital Course Mr Marco Antonio is a 59yo M inmate at [facility] with PMHx HTN, DM2, CHF who was admitted for retrosternal chest pain starting 10pm on 01/07 that was relieved with NTG and ASA, came to ED, found with elevated troponin, peaked at 0.16. CV consulted, admitted on heparin GTT. 01/10: Cardiac cath - s/p KACY to left circumflex artery and EF noted at 35% Glucose under 200. Chest pain resolved. He notes he has been struggling with leg pain and weakness for the past 6 months, but his acute problems have resolved. dispo back to half-way per cardiology with 30 day f/u and repeat echocardiogram in 90 days. Problem list: Acute myocardial infarction. NSTEMI, htn, lipids Dm2 - add jardiance for CAD with CHF incarcerated state half-way Cardiac cath: Conclusion 1. 90% bifurcation stenosis involving the distal LCx/OM1/OM 2. Successful PC I/drug-eluting stent placement to LCx/OM1. 2. 40-50% stenosis involving the left anterior descending artery, physiologically insignificant based on FFR measurement of 0.84. 50 to 60% stenosis involving the right coronary artery, physiologically insignificant based on IFR measurement of 0.95. 3. Moderate left ventricular systolic dysfunction with ejection fraction estimated at 35%. Recommendations 1. Aspirin 325 mg daily for 1 month followed by 81 mg daily 2. Plavix 75 mg daily 3. Optimization of medical therapy for chronic systolic heart failure 4. Repeat 2D echo in 3 months to evaluate the need for AICD implantation. Greater than 30 minutes spent on d/c Discharge Information Condition at Discharge: Improved Follow Up: Weeks (4) Disposition/Orders: D/C to Another Facility Scheduled Aspirin (Aspirin) 81 Mg Tab.chew, 81 MG PO DAILY for heart for 90 Days, #90 Ref 3 Prescribed by: ARMANDO REAGAN MD on 01/12/20 1247 Aspirin (Aspirin Ec) 325 Mg Tablet.dr, 325 MG PO DAILYWBKFT for CAD for 30 Days, #30 Prescribed by: ARMANDO REAGAN MD on 01/12/20 1247 Atorvastatin Calcium (Atorvastatin Calcium) 40 Mg Tablet, 40 MG PO DAILY for FOR CHOLESTEROL, #30 Ref 0 (Reported) Entered as Reported by: YARI LAU on 01/09/20504 Last Action: Continued on 01/09/201146 by DEREJE DUMAS Clonidine Hcl (Clonidine Hcl) 0.2 Mg Tablet, 0.2 MG PO HS for BP, (Reported) Entered as Reported by: YARI LAU on 01/09/20504 Last Action: Continued on 01/09/201146 by DEREJE DUMAS Clonidine Hcl (Clonidine Hcl) 0.1 Mg Tablet, 0.1 MG PO DAILY for htn, (Reported) Entered as Reported by: YARI LAU on 01/09/20504 Last Action: Continued on 01/09/201146 by DEREJE DUMAS Clopidogrel Bisulfate (Clopidogrel) 75 Mg Tablet, 75 MG PO DAILYWBKFT for CAD s/p Stent for 90 Days, #90 Ref 3 Prescribed by: ARMANDO REAGAN MD on 01/12/201246 Duloxetine Hcl (Cymbalta) 60 Mg Capsule.dr, 60 MG PO DAILY for dep, (Reported) Entered as Reported by: YRAI LAU on 01/09/20504 Last Action: Converted on 01/09/201146 by DEREJE DUMAS Empagliflozin (Jardiance) 10 Mg Tablet, 10 MG PO DAILY for DM2/CHF for 90 Days, #90 Ref 3 Prescribed by: ARMANDO REAGAN MD on 01/12/201246 Insulin Regular, Human (Humulin R) 100 Unit/1 Ml Vial, 1 UNIT SQ achs for dm, (Reported) sliding scale Entered as Reported by: YARI LAU on 01/09/20504 Last Action: New Order on 01/09/20504 by YARI LAU Isosorbide Mononitrate (Isosorbide Mononitrate Er) 30 Mg Tab.er.24h, 30 MG PO DAILY for heart, (Reported) Entered as Reported by: YARI LAU on 01/09/20504 Last Action: Continued on 01/09/201146 by DEREJE DUMAS Linagliptin (Tradjenta) 5 Mg Tablet, 5 MG PO DAILY for DM2 for 30 Days, #30 Ref 11 Prescribed by: ARMANDO REAGAN MD on 7/7/20 1247 Losartan Potassium (Losartan Potassium) 100 Mg Tablet, 100 MG PO DAILY for HYPERTENSION, (Reported) Entered as Reported by: YARI LAU on 01/09/20504 Last Action: Converted on 01/09/201146 by NIAL CASTFRANCIS Magnesium Citrate (Magnesium Citrate) 100 Mg Tablet, 400 MG PO HS for pain, (Reported) Entered as Reported by: YARI LAU on 01/09/20504 Last Action: Converted on 01/09/201146 by NIAXuan DUMAS Metformin Hcl (Metformin Hcl) 1,000 Mg Tablet, 1,000 MG PO BIDWMEALS for DM2 for 90 Days, #180 Ref 3 Prescribed by: ARMANDO REAGAN MD on 01/12/201246 Metoprolol Succinate (Toprol XL) 50 Mg Tab.er.24h, 50 MG PO DAILY for CAD for 90 Days, #90 Ref 3 Prescribed by: ARMANDO REAGAN MD on 01/12/201246 Nph, Human Insulin Isophane (Humulin N) 100 Unit/1 Ml Vial, 24 UNIT SQ QPM for dm, (Reported) Entered as Reported by: YARI LAU on 01/09/20504 Last Action: Converted on 01/09/201146 by NIAL ALESIA Nph, Human Insulin Isophane (Humulin N) 100 Unit/1 Ml Vial, 40 UNIT SQ DAILY08 for dm, (Reported) Entered as Reported by: YARI LAU on 01/09/20504 Last Action: Converted on 01/09/201146 by NIAXuan DUMAS Pregabalin (Lyrica) 150 Mg Capsule, 150 MG PO BID for pain for 30 Days, (Reported) Entered as Reported by: YARI LAU on 01/09/20504 Last Action: Converted on 01/09/201146 by NIAL ALESIA Scheduled PRN Nitroglycerin (Nitrostat) 0.4 Mg Tab.subl, 0.4 MG SL PRN Q5MIN PRN for CHEST PAIN for 30 Days, #9 Ref 2 Prescribed by: ARMANDO REAGAN MD on 01/12/201246 Discontinued Medications Ibuprofen (Ibuprofen) 600 Mg Tablet, 600 MG PO BID for pain, (Reported) Entered as Reported by: YARI LAU on 01/09/20 0505 Last Action: Converted on 01/09/20 1147 by DEREJE DUMAS Justicifation of Admission Dx: Justifications for Admission: Justification of Admission Dx: Yes [place]: Acute NSTEMI ARMANDO REAGAN MD Jan 12, 2020 12:52
[2020-01-12] MEDS ORDERED: LISI-338 PO (16:17)
--- NOTE | 2020-01-12 18:39 | NUR ---
Discharge Note: [facility] Discharge instructions and discharge home medications reviewed with Other facility Julieta RN and a copy given. All questions have been answered and understanding verbalized. The following instructions and handouts were given: NSTEMI, post cath instructions Discontinued lines and drains: Peripheral IV intact. Patient discharged to [facility] with Law Enforcement via Wheelchair
--- NOTE | 2020-01-13 08:14 | CARD ---
MR#: [id number] Date of Study: 01/12/2020 Ordering Physician: JULI CHEN, Referring Physician: JULI CHEN, Tech: Marlys Buck APPROVED REPORT EXAM: Two-dimensional and M-mode echocardiogram with Doppler and color Doppler. Other Information Quality : AverageHR: 70bpm INDICATION Cardiac Disease: CAD Congestive Heart Failure Non STEMI RISK FACTORS Hypertension Hyperlipidemia Diabetes 2D DIMENSIONS RVDd3.8 (2.9-3.5cm)Left Atrium(2D)3.8 (1.6-4.0cm) IVSd0.8 (0.7-1.1cm)Aortic Root(2D)3.5 (2.0-3.7cm) LVDd5.8 (3.9-5.9cm)LVOT Diameter2.2 (1.8-2.4cm) PWd1.0 (0.7-1.1cm)LVDs4.3 (2.5-4.0cm) FS (%) 26.2 %SV84.9 ml LVEF(%)50.6 (>50%) Aortic Valve AoV Peak Fausto.97.3cm/sAoV VTI20.0cm AO Peak GR.3.8mmHgLVOT Peak Fausto.80.9cm/s LVOT VTI 16.47cmAO Mean GR.2mmHg SAMANTHA (VMAX)2.77ak6TQK (VTI)3.02cm2 Mitral Valve MV E Vrnutnum77.7cm/sMV DECEL [id number] MV A Ctfwwnxc29.1cm/sMV E Mean Gr.2mmHg MV FRP27gnO/A Ratio1.0 MVA (PHT)3.10cm2 TDI E/Lateral E'8.1E/Medial E'8.3 Pulmonary Valve PV Peak Ywsugyup26.6cm/sPV Peak Grad.2mmHg LEFT VENTRICLE The left ventricle is normal size. There is normal left ventricular wall thickness. The left ventricu lar systolic function is normal and the ejection fraction is within normal range. The Ejection Fracti on is 45-50%. There is normal LV segmental wall motion. Transmitral Doppler flow pattern is Grade I-a bnormal relaxation pattern. RIGHT VENTRICLE The right ventricle is normal size. There is normal right ventricular wall thickness. The right ventr icular systolic function is normal. ATRIA The left atrium size is normal. The right atrium size is normal. The interatrial septum is intact wit h no evidence for an atrial septal defect or patent foramen ovale as noted on 2-D or Doppler imaging. AORTIC VALVE The aortic valve is normal in structure and function. Doppler and Color Flow revealed trace aortic re gurgitation. There is no significant aortic valvular stenosis. MITRAL VALVE The mitral valve is normal in structure and function. There is no evidence of mitral valve prolapse. There is no mitral valve stenosis. Doppler and Color-flow revealed trace mitral regurgitation. TRICUSPID VALVE The tricuspid valve is normal in structure and function. Doppler and Color Flow revealed no tricuspid valve regurgitation noted. There is no tricuspid valve stenosis. PULMONIC VALVE The pulmonic valve is not well visualized. Doppler and Color Flow revealed trace pulmonic valvular re gurgitation. There is no pulmonic valvular stenosis. GREAT VESSELS The aortic root is normal in size. The IVC is normal in size and collapses >50% with inspiration. PERICARDIAL EFFUSION There is no evidence of significant pericardial effusion. Critical Notification Critical Value: No <Conclusion> The left ventricular systolic function is normal and the ejection fraction is within normal range. Th e Ejection Fraction is 45-50%. There is normal LV segmental wall motion. Signed by : Jj Queen, Electronically Approved : 01/13/2020 08:13:31
== END 2020-01-12 19:22 | DRG 247 ==
LOC: ER 23:44 → EEVIPCON 23:44 → 6 SOUTH 01-09 02:00 → 2 SOUTH 01-09 14:40
PROVIDERS: ADMIT Internal Medicine; ATTEND Internal Medicine
PROC: 027034Z Dilation of Coronary Artery, One Artery with Drug-eluting Intraluminal Device, Percutaneous Approach (ICD-10-PCS; principal; 2020-01-11)
PROC: 4A023N7 Measurement of Cardiac Sampling and Pressure, Left Heart, Percutaneous Approach (ICD-10-PCS; 2020-01-11)
PROC: B2111ZZ Fluoroscopy of Multiple Coronary Arteries using Low Osmolar Contrast (ICD-10-PCS; 2020-01-11)
PROC: B2151ZZ Fluoroscopy of Left Heart using Low Osmolar Contrast (ICD-10-PCS; 2020-01-11)
PROC: 4A033BC Measurement of Arterial Pressure, Coronary, Percutaneous Approach (ICD-10-PCS; 2020-01-11)
DX: I21.4 Non-ST elevation (NSTEMI) myocardial infarction (principal); I50.22 Chronic systolic (congestive) heart failure; E78.5 Hyperlipidemia, unspecified; E11.9 Type 2 diabetes mellitus without complications; E78.00 Pure hypercholesterolemia, unspecified; I11.0 Hypertensive heart disease with heart failure; I25.10 Atherosclerotic heart disease of native coronary artery without angina pectoris; I25.5 Ischemic cardiomyopathy; Z20.828 Contact with and (suspected) exposure to other viral communicable diseases; Z79.02 Long term (current) use of antithrombotics/antiplatelets; Z79.82 Long term (current) use of aspirin; Z82.49 Family history of ischemic heart disease and other diseases of the circulatory system; Z87.891 Personal history of nicotine dependence; Z95.5 Presence of coronary angioplasty implant and graft; Z88.8 Allergy status to other drugs, medicaments and biological substances; Z79.899 Other long term (current) drug therapy
CPT/HCPCS: 36415; 71045; 80053; 80061; 82962; 83690; 84484; 85025; 85520; 92928; 93005; 93306; 93458; 93571; 96361; 96365; 96376; 99152; 99153; C1725; C1769; C1874; C1887; C1892; J0153; J0583; J1644; J1815; J2250; J3010; J3490; J7030; Q9967; 99291-25; C1713; G0378; U0003-CS